=== PATIENT | male | born 1935 | race Asian ===

== ENCOUNTER 2022-02-28 18:57 | Inpatient (IN) | payer OTHER, MEDICAID ==
[~2022-02-28] VITALS: Ht 172.7 cm; Wt 72.6 kg
[2022-02-28 19:13] VITALS: BP 129/76
--- NOTE | 2022-02-28 19:29 | NUR ---
TO LOBBY FOLLOWING TRIAGE
[2022-02-28 21:48] LABS: BASOPHILS % (AUTO) 0.5 % (0.0-2.0); EOSINOPHILS % (AUTO) 0.4 % (0.0-4.0); HEMATOCRIT 37.3 % (36-52); HEMOGLOBIN 12.4 g/dL (12.0-18.0); LYMPHOCYTES # (AUTO) 1.2 K/uL (2.0-11.5); LYMPHOCYTES % (AUTO) 12.5 % (20.5-51.1); MEAN CORPUSCULAR HEMOGLOBIN 32 pg (27-31); MEAN CORPUSCULAR HGB CONC 33 g/dL (33-37); MEAN CORPUSCULAR VOLUME 96.8 fL (80-94); MONOCYTES # (AUTO) 0.7 K/uL (0.8-1.0); MONOCYTES % (AUTO) 7.5 % (1.7-9.3); NEUTROPHILS # (AUTO) 7.7 K/uL (1.8-7.7); NEUTROPHILS % (AUTO) 79.1 % (42.2-75.2); PLATELET COUNT (AUTO) 104 K/uL (140-450); RED BLOOD CELL COUNT(AUTO) 3.85 MIL/uL (4.20-6.10); RED CELL DISTRIBUTION WIDTH 13.7 % (11.6-13.7); WHITE BLOOD COUNT (AUTO) 9.7 K/uL (4.8-10.8)
--- NOTE | 2022-02-28 22:00 | NUR ---
PT TO BED 8 VIA WHEELCHAIR, DAUGHTER AT BEDSIDE
[2022-02-28 22:14] LABS: ALBUMIN 3.8 g/dL (3.4-5.0); ANION GAP 11.1 (8-16); ASPARTATE AMINOTRANSFERASE 22 U/L (15-37); CARBON DIOXIDE 31.2 mmol/L (21-32); CHLORIDE 105 mmol/L (98-107); CREATININE 1.2 mg/dL (0.6-1.3); GLUCOSE 123 mg/dL (74-106); LIPASE 35 U/L (73-393); POTASSIUM 3.3 mmol/L (3.5-5.1); SODIUM SERUM 144 mmol/L (136-145); TOTAL BILIRUBIN 0.9 mg/dL (0.0-1.0); UREA NITROGEN, BLOOD 18 mg/dL (7-18)
--- NOTE | 2022-02-28 22:20 | NUR ---
86 Y/O M PRESENTS WITH ABDOMEN AND BACK PAIN SINCE THURSDAY NIGHT. PT'S DAUGHTER STATED HIS PAIN BECAME WORSE SINCE AND IS INTERMITTENT, X5DAYS NO BM. PT'S DAUGHTER MENTIONED SHE GAVE HIM AN ENEMA AND IT WAS SUCCESSFUL WITH SOME DIARRHEA, AND THE PT FEELS PRESSURE ON HIS EYES AND VISION IS BLURRY. PT IS A&OX2, RESPONDS TO DAUGHTER. PT APPEARS LETHARGIC WITH A DRY COUGH. PT DOES NOT VERBALLY SAY PAIN LEVEL, BUT HAS FACE GRIMACE. PT DAUGHTER STATED THE PT HAD A TEMP EARLIER AND DENIES PT ON BLOOD THINNERS. PT HAS A 20G R AC. PT'S DAUGHTER ALOS MENTIONED THE PT HAS SEIZURES. PT WAS STARTED ON O2 OF 1L SAT AT 90 AND INCREASED TO 2.5L SAT AT 97. PMH- PARKINSONS, SEIZURES NKA
--- NOTE | 2022-02-28 23:26 | NUR ---
PT IN CT
--- NOTE | 2022-02-28 23:34 | NUR ---
PT BACK FROM CT . 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 DAUGHTER AT BEDSIDE
[2022-03-01 01:13] LABS: APPEARANCE,URINE CLEAR (CLEAR); BILIRUBIN,URINE NEGATIVE (NEGATIVE); BLOOD, URINE 2+ (NEGATIVE); COLOR,URINE YELLOW (YELLOW); LEUKOCYTE ESTERASE ,URINE NEGATIVE (NEGATIVE); NITRITE, URINE NEGATIVE (NEGATIVE); UGLUCOSE NEGATIVE (NEGATIVE)
--- NOTE | 2022-03-01 01:13 | NUR ---
PENDING ADMISSION ORDERS. COVID SWAB COLLECTED AND SENT TO LAB.
--- NOTE | 2022-03-01 01:14 | NUR ---
PT STRAIGHT CATH URINE OBATAINED AND SENT TO LAB
[2022-03-01 01:43] LABS: RBC,URINE 20-50 /HPF (0-5)
[2022-03-01] MEDS ORDERED: NACL 0.9% 1,000 ML IV ONE (02:35)
[2022-03-01] MEDS ORDERED: cefTRIAXone 1,000 MG VIAL ONE (02:41)
--- NOTE | 2022-03-01 04:04 | NUR ---
PT SLEEPING, HOB ELEVATED WITH PENDING ADMISSION. RESPIRATIONS EVEN AND UNLABORED. DAUGHTER CALLED TO CHECK IN, STATED SHE WILL BE BACK AROUND 0700.
[2022-03-01] MEDS ORDERED: GABA100C PO (05:21)
[2022-03-01] MEDS ORDERED: PRO5 PO (05:21)
[2022-03-01] MEDS ORDERED: LEVO0.124 PO (05:21)
[2022-03-01] MEDS ORDERED: [UNRECOGNIZED DRUG - CODE] PO (05:21)
[2022-03-01] MEDS ORDERED: FLO.1 PO (05:21)
[2022-03-01] MEDS ORDERED: CARB1ODT4 PO (05:21)
[2022-03-01] MEDS ORDERED: [UNRECOGNIZED DRUG - CODE] PO (05:22)
--- NOTE | 2022-03-01 07:03 | NUR ---
PT SLEEPING, DAUGHTER AT BEDSIDE. PENDING ADMISSION
--- NOTE | 2022-03-01 07:14 | NUR ---
Received report from LILLIAN Restrepo for transfer of care.
--- NOTE | 2022-03-01 07:44 | NUR ---
Patient was made clean and dry. Fresh diaper applied. Patient was turned and repositioned.
[2022-03-01] MEDS ORDERED: MAG SULF 2000 MG/WATER PREMIX 50 ML IV PRN (08:00)
--- NOTE | 2022-03-01 08:50 | NUR ---
Patient was offered breakfast tray. Patient ate some breakfast.
--- NOTE | 2022-03-01 09:16 | NUR ---
Dr. Marina, admitting doctor, evaluating patient at bedside.
--- NOTE | 2022-03-01 09:48 | NUR ---
Patient was turned and repositioned, diaper was changed.
--- NOTE | 2022-03-01 11:17 | NUR ---
Patient is laying in bed, respirations even and unlabored. No signs of distress noted.
[2022-03-01] MEDS ORDERED: ONDANSETRON 4 MG/2 ML VIAL IVP PRN ×2 (11:25→11:35)
[2022-03-01] MEDS ORDERED: MORPHINE SULFATE 2 MG/ML SYR IVP PRN ×2 (11:25→11:35)
[2022-03-01] MEDS ORDERED: LORazepam 2 MG/ML VIAL IVP PRN ×2 (11:25→11:35)
[2022-03-01] MEDS ORDERED: DOCUSATE SODIUM 100 MG GELCAP PO PRN (11:35)
[2022-03-01] MEDS ORDERED: ACETAMINOPHEN 325 MG TAB PO PRN (11:35)
[2022-03-01] MEDS ORDERED: ZOLPIDEM 10 MG TAB PO PRN (11:35)
[2022-03-01] MEDS: NACL 0.9% 1,000 ML IV SCH ×2 (12:37→21:25)
--- NOTE | 2022-03-01 12:38 | NUR ---
When patient was provided with incontinent care, patient was noted with blood to his urethra. Patient was turned and repositioned.
--- NOTE | 2022-03-01 14:23 | NUR ---
Patient pulled out IV. Called Dr. Marina and informed him of patient pulling out G-tube and loose stool. Received new orders for Ativan 2mg IM one time and C. Diff protocol. Orders carried out. Addendum: 03/01/22 at 1424 by MNUROBN Correction pulled out IV not G-tube.
[2022-03-01] MEDS ORDERED: LORazepam 2 MG/ML VIAL IM PRN (14:25)
--- NOTE | 2022-03-01 15:37 | NUR ---
Patient was made clean and dry. Incontinent care provided. Patient was turned and repositioned.
--- NOTE | 2022-03-01 18:01 | NUR ---
Patient was provided with incontinent care. Patient was turned and repositioned.
--- NOTE | 2022-03-01 19:21 | NUR ---
Report given to ERIC Hyman and ERIC Moon for transfer of care.
--- NOTE | 2022-03-01 21:40 | NUR ---
Stool specimen sent to lab
--- NOTE | 2022-03-01 21:50 | NUR ---
Pt care provided and changed, linens changed.
--- NOTE | 2022-03-01 21:58 | NUR ---
Spoke with Dr. Marina regarding continuing home medications, order received to continue home meds.
--- NOTE | 2022-03-01 22:15 | NUR ---
Report given for transfer of care to Elif REYES
--- NOTE | 2022-03-01 22:35 | NUR ---
ADMITTED PATIENT FROM ER [facility]IA [facility] NON VERBAL AT THIS TIME WITH EYES CLOSED. ON ROOM AIR, UNDER DR FROST. CC: ALOC DX: AMS SECONDARY TO UTI. TRANSFERRED PATIENT TO BED SAFELY. DAUGHTER AT BEDSIDE. ALL SAFETY PRECAUTIONS ARE IN PLACE. HANGED IVF ORDERED. BODY CHECKED DONE SKIN INTACT. MRSA SCREENING DONE.
[2022-03-02] VITALS: BP 119/67
[2022-03-02] MEDS: NACL 0.9% 1,000 ML IV SCH ×3 (01:41→17:54)
[2022-03-02] MEDS ORDERED: cefTRIAXone 1,000 MG VIAL ONE (03:23)
--- NOTE | 2022-03-02 03:42 | NUR ---
CHECKED ON PATIENT , PT IS BREATHING NORMAL WITH SYMMETRICAL RISE AND FALL OF THE CHEST. NO SOB NOTED.
[2022-03-02 04:00] VITALS: BP 124/78
[2022-03-02] MEDS: LEVOTHYROXINE 0.025 MG TAB PO SCH (06:30)
[2022-03-02] MEDS: LEVOTHYROXINE 0.1 MG TAB PO SCH (06:30)
--- NOTE | 2022-03-02 07:26 | NUR ---
BEDSIDE REPORT GIVEN TO AM NURSE SHAAN FOR CONTINUITY OF CARE. POC DISCUSSED.
[2022-03-02 07:27] LABS: ANION GAP 10.5 (8-16); CARBON DIOXIDE 26.8 mmol/L (21-32); CHLORIDE 109 mmol/L (98-107); CREATININE 0.8 mg/dL (0.6-1.3); GLUCOSE 89 mg/dL (74-106); POTASSIUM 3.3 mmol/L (3.5-5.1); SODIUM SERUM 143 mmol/L (136-145); UREA NITROGEN, BLOOD 12 mg/dL (7-18)
[2022-03-02 07:29] LABS: BASOPHILS % (AUTO) 0.4 % (0.0-2.0); EOSINOPHILS # (AUTO) 0.3 K/uL (0-0.4); EOSINOPHILS % (AUTO) 2.6 % (0.0-4.0); HEMATOCRIT 35.2 % (36-52); HEMOGLOBIN 11.9 g/dL (12.0-18.0); LYMPHOCYTES # (AUTO) 1.4 K/uL (2.0-11.5); LYMPHOCYTES % (AUTO) 13.9 % (20.5-51.1); MEAN CORPUSCULAR HEMOGLOBIN 33 pg (27-31); MEAN CORPUSCULAR HGB CONC 34 g/dL (33-37); MEAN CORPUSCULAR VOLUME 96.7 fL (80-94); MONOCYTES # (AUTO) 0.8 K/uL (0.8-1.0); MONOCYTES % (AUTO) 7.9 % (1.7-9.3); NEUTROPHILS # (AUTO) 7.7 K/uL (1.8-7.7); NEUTROPHILS % (AUTO) 75.2 % (42.2-75.2); PLATELET COUNT (AUTO) 131 K/uL (140-450); RED BLOOD CELL COUNT(AUTO) 3.63 MIL/uL (4.20-6.10); RED CELL DISTRIBUTION WIDTH 13.5 % (11.6-13.7); WHITE BLOOD COUNT (AUTO) 10.2 K/uL (4.8-10.8)
[2022-03-02 08:00] VITALS: BP 183/98
[2022-03-02] MEDS: MIDODRINE 5 MG TAB PO SCH (09:00)
[2022-03-02] MEDS: MULTIVITAMIN/MINERALS 1 TAB PO SCH (09:00)
[2022-03-02] MEDS ORDERED: FLUDROCORTISONE 0.1 MG TAB PO SCH (09:00)
[2022-03-02] MEDS ORDERED: COMMUNICATION ORDER MC SCH (09:00)
[2022-03-02] MEDS: CARBIDOPA/LEVODOPA 25/100 MG 1 TAB PO SCH (09:00)
[2022-03-02] MEDS: FLUDROCORTISONE 0.1 MG TAB PO SCH ×2 (09:00→21:00)
[2022-03-02] MEDS: ENTACAPONE 200 MG TAB PO SCH (09:00)
--- NOTE | 2022-03-02 09:23 | NUR ---
PATIENT HAS BEEN SCREENED AND CATEGORIZED MODERATE NUTRITION RISK. PATIENT WILL BE SEEN WITHIN 3-5 DAYS OF ADMISSION. REVIEWED BY VIVIANE DIETRICH RD
[2022-03-02 16:00] VITALS: BP 178/99
[2022-03-02] MEDS ORDERED: LOVENOX 1MG/KG Q24H SUBQ SCH (17:15)
[2022-03-02] MEDS ORDERED: ENOXAPARIN 80 MG/0.8 ML SYR SUBQ SCH (18:30)
--- NOTE | 2022-03-02 19:39 | NUR ---
ENDORSE PATIENT IN STABLE CONDITION TO PM SHIFT NURSE ULYSSES PIV 24 AT R. THUMB INFUSING NS @100ML/HR. PATIENT HAD 4 DIARRHEAS DURING DAY SHIFT
--- NOTE | 2022-03-02 19:57 | NUR ---
PATIENT SLEEPING, BREATHING NORMAL WITH SYMMETRICAL RISE AND FALL OF THE CHEST. IVF NS INFUSING 100 ML/HR. BED WHEELS LOCKED IN LOWEST POSITION FOR SAFETY. CALL LIGHT IN REACH.
--- NOTE | 2022-03-02 20:25 | NUR ---
PATIENT PULLED OUT IV LINE, WILL START A NEW IV.
[2022-03-02] MEDS: GABAPENTIN 100 MG CAP PO SCH (21:00)
--- NOTE | 2022-03-02 21:50 | NUR ---
STARTED A NEW IV ON THE LEFT WRIST WITH GOOD RETURN OF BLOOD. TOLERATED WELL.
--- NOTE | 2022-03-02 22:18 | NUR ---
PATIENT KEEP PULLING OUT HIS IV, KICKING AT THE STAFF. NOTIFIED DR. JUAREZ WITH ORDERS NOTED AND CARRIED OUT.
--- NOTE | 2022-03-02 22:19 | NUR ---
DAUGHTER DAGOBERTO ARANA MADE AWARE WITH THE USE OF PATIENT RESTRAINTS.
[2022-03-03] MEDS: NACL 0.9% 1,000 ML IV SCH ×3 (00:30→23:25)
[2022-03-03 04:00] VITALS: BP 163/92
[2022-03-03 05:52] LABS: BASOPHILS % (AUTO) 0.2 % (0.0-2.0); EOSINOPHILS # (AUTO) 0.2 K/uL (0-0.4); EOSINOPHILS % (AUTO) 2.6 % (0.0-4.0); HEMATOCRIT 38.4 % (36-52); HEMOGLOBIN 13.1 g/dL (12.0-18.0); LYMPHOCYTES # (AUTO) 1.2 K/uL (2.0-11.5); MEAN CORPUSCULAR HEMOGLOBIN 33 pg (27-31); MEAN CORPUSCULAR HGB CONC 34 g/dL (33-37); MEAN CORPUSCULAR VOLUME 95.3 fL (80-94); MONOCYTES # (AUTO) 0.7 K/uL (0.8-1.0); MONOCYTES % (AUTO) 8.4 % (1.7-9.3); NEUTROPHILS # (AUTO) 5.8 K/uL (1.8-7.7); NEUTROPHILS % (AUTO) 73.8 % (42.2-75.2); PLATELET COUNT (AUTO) 123 K/uL (140-450); RED BLOOD CELL COUNT(AUTO) 4.03 MIL/uL (4.20-6.10); RED CELL DISTRIBUTION WIDTH 13.2 % (11.6-13.7); WHITE BLOOD COUNT (AUTO) 7.9 K/uL (4.8-10.8)
[2022-03-03] MEDS: LEVOTHYROXINE 0.1 MG TAB PO SCH (06:30)
[2022-03-03] MEDS: LEVOTHYROXINE 0.025 MG TAB PO SCH (06:30)
[2022-03-03 06:31] LABS: ANION GAP 9.6 (8-16); CARBON DIOXIDE 27.8 mmol/L (21-32); CHLORIDE 107 mmol/L (98-107); CREATININE 0.8 mg/dL (0.6-1.3); GLUCOSE 91 mg/dL (74-106); POTASSIUM 3.4 mmol/L (3.5-5.1); SODIUM SERUM 141 mmol/L (136-145); UREA NITROGEN, BLOOD 13 mg/dL (7-18)
[2022-03-03 08:00] VITALS: BP 180/78
[2022-03-03] MEDS: CARBIDOPA/LEVODOPA 25/100 MG 1 TAB PO SCH (09:00)
[2022-03-03] MEDS: FLUDROCORTISONE 0.1 MG TAB PO SCH ×2 (09:00→21:29)
[2022-03-03] MEDS: MIDODRINE 5 MG TAB PO SCH (09:00)
[2022-03-03] MEDS: ENTACAPONE 200 MG TAB PO SCH (09:00)
[2022-03-03] MEDS: MULTIVITAMIN/MINERALS 1 TAB PO SCH (09:00)
--- NOTE | 2022-03-03 14:40 | NUR ---
PT WAS SEEN FOR DYSPHAGIA. PT WAS ABLE TO SAFELY SWALLOW PUREE DIETW ITH HONEY THICK LIQUID. MILD COUGH FOR NTL AND THIN LIQUID. RECOMMENDATION PUREE DIET WITH HONEY THICK LIQUID SMALL BITES AND SIPS ONLY FEED WHEN PT IS FULLY AWAKE
[2022-03-03 16:00] VITALS: BP 157/83
--- NOTE | 2022-03-03 16:29 | NUR ---
DC PLANNING PER NOTES PT IS NONVERBAL THEREFORE SW OUTREACHED TO DAGOBERTO, DAUGHTER, TO GATHER COLLATERAL INFORMATION. DAGOBERTO REPORTS PT RESIDES IN A SINGLE STORY HOME WITH HIS HER AND PTS GRANDDAUGHTER AT THE ADDRESS LISTED ON FILE. DAGOBERTO REPORTS PATIENT RECENTLY MOVED IN WITH HER IN DEC 31. PT IDENTIFIED HERSELF, , PRINCE DIETRICH, SON, AND LIANA DIETRICH, DAUGHTER, PT EMERGENCY CONTACTS. DAGOBERTO REPORTS LIANA IS PTS DPOA AND IS AWARE PT IS ADMITTED TO [facility]. LIANA IS REPORTED TO BE CURRENTLY OUT OF THE COUNTRY. DAGOBERTO REPORTS PT IS CURRENTLY IN BETWEEN PHYSICIANS HE CURRENTLY RELOCATED, LAST VISIT DEC 31. PT REPORTED TO BE MEDICATION COMPLIANT AND RECEIVES MEDICATION FROM [facility] IN [place], WHEN NEEDED. PT AT BASELINE IS REPORTED TO UTILIZE WC, FWW, CANE AND REQUIRES MINIMAL ASSISTANCE WITH ADL'S. DAGOBERTO REPORTS PT HAS HX OF PARKINSON DX'S 13 YRS AGO, WELL , DEMENTIA. DAGOBERTO DENIES HX OF DIABETES, DIALYSIS, SNF PLACEMENT, HOSPICE AND HH SERVICES. PT IS REPORTED TO HAVE BEEN IN RESPITE CARE FOR 1 MONTH IN SEP-OCT 31. DAGOBERTO REPORTS TENTATIVE PLAN IS FOR PT TO RETURN HOME HOWEVER, INQUIRED ABOUT SNF PLACEMENT . DAGOBERTO REPORTS IF PT LEVEL OF CARE HAS INCREASED, FAMILY HAS INABILITY TO CARE FOR HIM. DAGOBERTO REPORTS BEING OPEN TO SNF PLACEMENT. OTIS FIELDED CALL FROM [facility] ADMIN WHO REPORTS PTS FAMILY HAD OUTREACHED TO [facility] FOR PLACEMENT. Addendum: 03/03/22 at 1631 by Tono TORRES Amended: Links added.
[2022-03-03] MEDS: POTASSIUM CHLORIDE 10 MEQ TABER PO PRN (18:24)
--- NOTE | 2022-03-03 19:21 | NUR ---
ENDORSE PATIENT IN STABLE CONDITION TO PM SHIFT NURSE ULYSSES Reynolds FOREARM INFUSING NS @100ML/HR. SOFT RESTRICT PRESENT. PATIENT START PUREE DIET AT DINNER (ATE 90%). PATIENT HAD 3 DIARRHEAS & 1 FORMED BM DURING DAY SHIFT
--- NOTE | 2022-03-03 19:30 | NUR ---
RECEIVED REPORT FROM DAY SHIFT NURSE JJ FOR CONTINUITY OF CARE. PATIENT IS A&O X0, LAO SPEAKING. IV IS LFA 22G, RUNNING NS 100. PATIENT IS LYING SEMI-FOWLERS IN BED. BED IS IN LOWEST POSITION, WHEELS LOCKED CALL LIGHT IN PLACE. WILL CONTINUE TO OBSERVE PATIENT.
[2022-03-03 20:00] VITALS: BP 108/63
[2022-03-03] MEDS ORDERED: ENOXAPARIN 80 MG/0.8 ML SYR SUBQ SCH (21:00)
[2022-03-03] MEDS: GABAPENTIN 100 MG CAP PO SCH (21:29)
[2022-03-04 04:00] VITALS: BP 138/56
--- NOTE | 2022-03-04 05:30 | NUR ---
PATIENT HAD BM. PATIENT WAS CLEANED WITH ASSISTANCE FROM JULIUS ACUNA, NURSE COLIN, AND NURSE MELISSA. PATIENT WAS GIVEN NEW PILLOW FOR LEG SUPPORT, COVERS, SHEFALI PADS, AND GOWN. PATIENT TOLERATED WELL. WILL CONTINUE TO OBSERVE PATIENT.
[2022-03-04 06:07] LABS: ANION GAP 10.3 (8-16); CARBON DIOXIDE 26.9 mmol/L (21-32); CHLORIDE 110 mmol/L (98-107); CREATININE 1.1 mg/dL (0.6-1.3); GLUCOSE 91 mg/dL (74-106); POTASSIUM 3.2 mmol/L (3.5-5.1); SODIUM SERUM 144 mmol/L (136-145); UREA NITROGEN, BLOOD 16 mg/dL (7-18)
[2022-03-04 06:10] LABS: BASOPHILS % (AUTO) 0.3 % (0.0-2.0); EOSINOPHILS # (AUTO) 0.2 K/uL (0-0.4); HEMATOCRIT 35.4 % (36-52); HEMOGLOBIN 12.1 g/dL (12.0-18.0); LYMPHOCYTES # (AUTO) 1.2 K/uL (2.0-11.5); LYMPHOCYTES % (AUTO) 20.2 % (20.5-51.1); MEAN CORPUSCULAR HEMOGLOBIN 33 pg (27-31); MEAN CORPUSCULAR HGB CONC 34 g/dL (33-37); MEAN CORPUSCULAR VOLUME 95.2 fL (80-94); MONOCYTES # (AUTO) 0.7 K/uL (0.8-1.0); MONOCYTES % (AUTO) 12.6 % (1.7-9.3); NEUTROPHILS # (AUTO) 3.8 K/uL (1.8-7.7); NEUTROPHILS % (AUTO) 63.9 % (42.2-75.2); PLATELET COUNT (AUTO) 132 K/uL (140-450); RED BLOOD CELL COUNT(AUTO) 3.72 MIL/uL (4.20-6.10); RED CELL DISTRIBUTION WIDTH 13.3 % (11.6-13.7)
[2022-03-04] MEDS: LEVOTHYROXINE 0.1 MG TAB PO SCH (06:17)
[2022-03-04] MEDS: NACL 0.9% 1,000 ML IV SCH (06:18)
[2022-03-04] MEDS: LEVOTHYROXINE 0.025 MG TAB PO SCH (06:18)
--- NOTE | 2022-03-04 07:29 | NUR ---
ENDORSED TO DAY SHIFT NURSE JOHN FOR CONTINUITY OF CARE. PATIENT IS STABLE.
[2022-03-04] MEDS: ENTACAPONE 200 MG TAB PO SCH (09:00)
[2022-03-04] MEDS: POTASSIUM CHLORIDE 10 MEQ TABER PO PRN (09:58)
[2022-03-04] MEDS: CARBIDOPA/LEVODOPA 25/100 MG 1 TAB PO SCH (09:58)
[2022-03-04] MEDS: MIDODRINE 5 MG TAB PO SCH (09:59)
[2022-03-04] MEDS: MULTIVITAMIN/MINERALS 1 TAB PO SCH (09:59)
[2022-03-04] MEDS: FLUDROCORTISONE 0.1 MG TAB PO SCH (09:59)
[2022-03-04 13:36] VITALS: BP 146/80
--- NOTE | 2022-03-04 14:05 | NUR ---
DC PLANNING: CM MET PT'S DAUGHTER DAGOBERTO AT THE BED SIDE DISCUSSED THE DC PLACEMENT PER DAUGHTER REQUESTED TO GO TO SNF FOR REHAB TO [facility] WITH THE [place] [facility]. PATIENT GOT ACCEPTED AT [facility] CAN GO TO ROOM 34B .ARRANGED TRANSPORT WITH [facility] UPTIME 3 PM. NOTIFIED JOHN REYES. OTIS TO FOLLOW
--- NOTE | 2022-03-04 15:00 | NUR ---
DISCHARGE INSTRUCTIONS AND EDUCATION GIVEN AND THOROUGHLY EXPLAINED TO PATIENTS DAUGHTER, LIANA DIETRICH. ALL QUESTIONS AND CONCERNS ADDRESSED AT THIS TIME. INFORMED PATIENTS DAUGHTER NO NEW PRESCRIPTIONS WERE ORDERS. AND HOME MEDICATIONS WILL BE CONTINUED. ADVISED PATIENT'S DAUGHTER TO HAVE PATIENT FOLLOW UP WITH HIS PCP WITHIN A WEEK. ALL BELONGINGS WITH PATIENT. PATIENT APPEARS FREE OF PAIN, NO SOB, OR DISCOMFORT AT THIS TIME. V/S STABLE. IV REMOVED AND ID BAND. GAVE REPORT TO FARRAH AT [facility] AT [phone]. INFORMED PATIENT IS R/O C. DIFF PENDING RESULTS. ERIC YAN VERBALIZED UNDERSTANDING.
== END 2022-03-04 15:20 | DRG 871 ==
LOC: MED 18:57 → MMU 03-01 02:37 → MIC 03-01 06:01 → MTU 03-01 22:16
PROVIDERS: ADMIT Family Medicine; ATTEND Family Medicine
DX: A41.9 Sepsis, unspecified organism (principal); G93.41 Metabolic encephalopathy; N39.0 Urinary tract infection, site not specified; G20 Parkinson's disease; F02.80 Dementia in other diseases classified elsewhere, unspecified severity, without behavioral disturbance, psychotic disturbance, mood disturbance, and anxiety; E87.6 Hypokalemia; R65.20 Severe sepsis without septic shock; Z20.822 Contact with and (suspected) exposure to COVID-19
CPT/HCPCS: 36415; 70450; 71045; 80048; 80053; 81001; 83036; 83690; 83735; 84484; 85025; 87070; 87081; 87086; 92610; 96365; 97163-GP; 97530; 99285; J0696; J1644; J1650; J2060; J2270; J7060; Q9967

== ENCOUNTER 2022-04-01 02:45 | Inpatient (IN) | payer OTHER, MEDICAID ==
[~2022-04-01] VITALS: Ht 177.8 cm; Wt 63.5 kg
[~2022-04-01 02:45] MED LIST: CARB1ODT4 PO; FLO.1 PO; GABA100C PO; LEVO0.124 PO; PRO5 PO; [UNRECOGNIZED DRUG - CODE] PO; [UNRECOGNIZED DRUG - CODE] PO
--- NOTE | 2022-04-01 03:00 | NUR ---
PT IS HERE BECAUSE HE DESATING IN THE 80 WITH NASAL CANULA. PT BROUGHT BY AMBULANCE WITH NON REBREATHER 8 LITER. PER FISCAL CLERK THEY TRIED TO CALLED THE FAMILY BUT NO ANSWERS. PT IS UNABLE TO AMBULATE. SKIN IS INTACT.
[2022-04-01 03:03] VITALS: BP 162/91
[2022-04-01 03:05] VITALS: BP 170/82
[2022-04-01 03:07] LABS: BASOPHILS # (AUTO) 0.1 K/uL (0.00-0.22); BASOPHILS % (AUTO) 0.5 % (0.0-2.0); HEMATOCRIT 33.1 % (36-52); LYMPHOCYTES # (AUTO) 1.2 K/uL (2.0-11.5); LYMPHOCYTES % (AUTO) 11.2 % (20.5-51.1); MEAN CORPUSCULAR HEMOGLOBIN 32 pg (27-31); MEAN CORPUSCULAR HGB CONC 33 g/dL (33-37); MEAN CORPUSCULAR VOLUME 95.1 fL (80-94); MONOCYTES # (AUTO) 0.5 K/uL (0.8-1.0); MONOCYTES % (AUTO) 5.1 % (1.7-9.3); NEUTROPHILS # (AUTO) 8.9 K/uL (1.8-7.7); NEUTROPHILS % (AUTO) 83.2 % (42.2-75.2); PLATELET COUNT (AUTO) 151 K/uL (140-450); RED BLOOD CELL COUNT(AUTO) 3.48 MIL/uL (4.20-6.10); RED CELL DISTRIBUTION WIDTH 14.1 % (11.6-13.7); WHITE BLOOD COUNT (AUTO) 10.7 K/uL (4.8-10.8)
--- NOTE | 2022-04-01 03:13 | NUR ---
BIBA FROM [facility], FOR FLUCTUATING O2 SATS. PATIENT ALSO WITH ELEVATED TEMP AND TACHYPNEA. PATIENT TRANSFERRED FROM [facility] TO BED 1 HAS THE FOLLOWING MEDICAL HISTORY PER DOCUMENTATION FROM [facility]: DEMENTIA, PARKINSON'S DISEASE, HTN, NEUROPATHY, DYSPHAGIA, C.DIFF, AND UTI
[2022-04-01 03:24] LABS: ALBUMIN 3.2 g/dL (3.4-5.0); ANION GAP 11.8 (8-16); ASPARTATE AMINOTRANSFERASE 20 U/L (15-37); CARBON DIOXIDE 29.9 mmol/L (21-32); CHLORIDE 108 mmol/L (98-107); CREATININE 1.3 mg/dL (0.6-1.3); GLUCOSE 128 mg/dL (74-106); POTASSIUM 3.7 mmol/L (3.5-5.1); SODIUM SERUM 146 mmol/L (136-145); UREA NITROGEN, BLOOD 28 mg/dL (7-18)
[2022-04-01] MEDS ORDERED: ACETAMINOPHEN 650 MG SUPP RC ONE ×2 (03:25)
[2022-04-01 03:29] LABS: LIPASE 57 U/L (73-393)
--- NOTE | 2022-04-01 03:39 | NUR ---
0315 PLACED PATIENT ON BIPAP DUE TO SOB. IPAP 16 EPAP6 RR 20 FIO2 100% SIZE MEDIUM MASK. PT BS ARE COARSE BILAT. ABG PENDING
--- NOTE | 2022-04-01 03:40 | NUR ---
0340 POST ABG LOWERED FIO2 TO 30%
[2022-04-01] MEDS ORDERED: BISA-213 RC (04:35)
[2022-04-01] MEDS ORDERED: MULT-1328 PO (04:35)
[2022-04-01] MEDS ORDERED: MIDO10TA PO (04:35)
[2022-04-01] MEDS ORDERED: PRAM0.5T4 PO (04:35)
[2022-04-01] MEDS ORDERED: MULT-2246 PO (04:35)
[2022-04-01] MEDS ORDERED: PIPERACILLIN/TAZOBACTAM 3.375 GM VIAL IV ONE ×2 (04:44→13:21)
[2022-04-01] MEDS ORDERED: AZITHROMYCIN 500 MG in DEXTROSE 5% 250 ML IV ONE (04:45)
[2022-04-01] MEDS ORDERED: PIPERACILLIN/TAZOBACTAM 3.375 GM in DEXTROSE 5% 50 ML IV ONE (04:45)
[2022-04-01] MEDS ORDERED: NACL 0.9% 1,000 ML IV ONE (05:00)
[2022-04-01] MEDS ORDERED: AZITHROMYCIN 500 MG INJ VIAL IV ONE (05:06)
--- NOTE | 2022-04-01 05:22 | NUR ---
0505 PATIENT BROKE BIPAP CIRCUIT. HAD TO REPLACE CIRCUIT. PLACED PT ON RESTRAINTS.LOWERED IPAP TO 14
[2022-04-01] MEDS ORDERED: NACL 0.9% 1,000 ML IV SCH (07:00)
[2022-04-01] MEDS ORDERED: ZOLPIDEM 5 MG TAB PO PRN (07:00)
[2022-04-01] MEDS ORDERED: ONDANSETRON 4 MG/2 ML VIAL IM/IVP PRN (07:00)
[2022-04-01] MEDS ORDERED: ACETAMINOPHEN 325 MG TAB PO PRN (07:00)
[2022-04-01] MEDS ORDERED: HYDROcodone/APAP 7.5/325 MG 1 TAB PO PRN (07:00)
[2022-04-01] MEDS ORDERED: DOCUSATE SODIUM 100 MG GELCAP PO PRN (07:00)
[2022-04-01] MEDS ORDERED: guaiFENesin DM 200/20 MG-10 ML 10 ML UDC PO PRN (07:00)
[2022-04-01] MEDS ORDERED: methylPREDNISolone SS 40 MG/ML VIAL IVP SCH (07:20)
[2022-04-01] MEDS: CARBIDOPA/LEVODOPA 25/100 MG 1 TAB PO SCH ×3 (08:00→17:00)
[2022-04-01] MEDS ORDERED: FUROSEMIDE 20 MG/2 ML VIAL IVP SCH (08:10)
[2022-04-01] MEDS: MIDODRINE 5 MG TAB PO SCH (09:00)
[2022-04-01] MEDS: PRAMIPEXOLE 0.5 MG TAB PO SCH (09:00)
[2022-04-01] MEDS: MULTIVITAMIN/MINERALS 1 TAB PO SCH (09:00)
[2022-04-01] MEDS: GABAPENTIN 100 MG CAP PO SCH (09:00)
[2022-04-01] MEDS: ENTACAPONE 200 MG TAB PO SCH (09:00)
[2022-04-01] MEDS ORDERED: NON-FORMULARY ITEM (Multivitamin with Minerals (Multivitamins with Minerals) 1 TAB) PO SCH (09:00)
[2022-04-01] MEDS: PANTOPRAZOLE 40 MG TABEC PO SCH (09:00)
[2022-04-01 09:05] LABS: PROTHROMBIN TIME 10.3 secs (10.8-13.4)
[2022-04-01 09:11] LABS: FREE T4 (FREE THYROXINE) 1.14 ng/dL (0.76-1.46); MAGNESIUM 1.6 mg/dL (1.8-2.4); PHOSPHORUS 2.8 mg/dL (2.5-4.9)
[2022-04-01] MEDS ORDERED: MAG SULF 2000 MG/WATER PREMIX 50 ML IV ONE (11:00)
[2022-04-01] MEDS: methylPREDNISolone SS 125 MG/2 ML VIAL IVP SCH ×2 (12:45→18:53)
[2022-04-01] MEDS: PIPERACILLIN/TAZOBACTAM 3.375 GM in DEXTROSE 5% 50 ML IV SCH ×2 (13:40→20:11)
[2022-04-01 14:36] LABS: APPEARANCE,URINE CLEAR (CLEAR); BILIRUBIN,URINE NEGATIVE (NEGATIVE); BLOOD, URINE TRACE-I (NEGATIVE); COLOR,URINE YELLOW (YELLOW); LEUKOCYTE ESTERASE ,URINE NEGATIVE (NEGATIVE); NITRITE, URINE NEGATIVE (NEGATIVE); PH,URINE 5.5 (5.0-9.0); UGLUCOSE NEGATIVE (NEGATIVE)
[2022-04-01 15:02] LABS: RBC,URINE 0-5 /HPF (0-5); WBC,URINE 0-5 /HPF (0-5)
--- NOTE | 2022-04-01 15:32 | NUR ---
Patient failed sawllow eval per ST. continue on NPO
[2022-04-01 16:35] VITALS: BP 126/71
--- NOTE | 2022-04-01 16:35 | NUR ---
RECIEVED REPORT FROM ER NURSE FOR CONTINUITY OF CARE. PT WAS STABLE UPON TRANSPORT WITH NO SIGNS OF DISTRESSED OR LABORED BREATHING. PT IS A&OX1, ON 3L NC STATING AT 94%, NON AMBULATORY ON BED REST AND IS NPO AT THIS TIME. PT IS INCONTINENT OF BOWEL AND BLADDER AT THIS TIME. PT HAS A 18G IN HIS RAC THAT IS INFUSING NS@ 60ML/HR. ALL SAFETY MEASURES IN PLACE AND WILL CONTINUE TO MONITOR.
--- NOTE | 2022-04-01 19:20 | NUR ---
ENDORSED PT TO SETTER OFF NURSE FOR CONTINUITY OF CARE. PT STABLE AT THIS TIME.
--- NOTE | 2022-04-01 19:25 | NUR ---
RECEIVED PT FROM AM NURSE FOR CONTINUITY OF CARE.PT IS STABLE
[2022-04-01 20:00] VITALS: BP 126/73
[2022-04-02] VITALS: BP 130/78
--- NOTE | 2022-04-02 02:00 | NUR ---
PATIENT ASLEEP, NO S/SX OF DISTRESS NOTED
[2022-04-02 04:00] VITALS: BP 146/90
[2022-04-02] MEDS: PIPERACILLIN/TAZOBACTAM 3.375 GM in DEXTROSE 5% 50 ML IV SCH ×3 (05:00→20:18)
[2022-04-02] MEDS: methylPREDNISolone SS 125 MG/2 ML VIAL IVP SCH ×3 (06:00→11:19)
[2022-04-02] MEDS: LEVOTHYROXINE 0.025 MG TAB PO SCH (06:00)
[2022-04-02 07:34] LABS: CARBON DIOXIDE 28.2 mmol/L (21-32); CHLORIDE 110 mmol/L (98-107); CREATININE 1.2 mg/dL (0.6-1.3); GLUCOSE 133 mg/dL (74-106); POTASSIUM 3.2 mmol/L (3.5-5.1); SODIUM SERUM 147 mmol/L (136-145); UREA NITROGEN, BLOOD 30 mg/dL (7-18)
[2022-04-02 07:40] LABS: BASOPHILS % (AUTO) 0.1 % (0.0-2.0); EOSINOPHILS % (AUTO) 0.3 % (0.0-4.0); HEMATOCRIT 32.5 % (36-52); HEMOGLOBIN 10.9 g/dL (12.0-18.0); LYMPHOCYTES # (AUTO) 0.8 K/uL (2.0-11.5); LYMPHOCYTES % (AUTO) 8.3 % (20.5-51.1); MEAN CORPUSCULAR HEMOGLOBIN 32 pg (27-31); MEAN CORPUSCULAR HGB CONC 33 g/dL (33-37); MEAN CORPUSCULAR VOLUME 94.1 fL (80-94); MONOCYTES # (AUTO) 0.2 K/uL (0.8-1.0); MONOCYTES % (AUTO) 2.3 % (1.7-9.3); PLATELET COUNT (AUTO) 144 K/uL (140-450); RED BLOOD CELL COUNT(AUTO) 3.45 MIL/uL (4.20-6.10); RED CELL DISTRIBUTION WIDTH 14.2 % (11.6-13.7); WHITE BLOOD COUNT (AUTO) 10.1 K/uL (4.8-10.8)
--- NOTE | 2022-04-02 07:49 | NUR ---
RECEIVED PT CARE AND REPORT FROM NAN REYES. PT IS RESTING IN BED ON LEFT SIDE WITH OU CLOSED. NO VISIBLE S/S OF DISTRESS, DISCOMFORT, PAIN OR SOB. CALL LIGHT IS WITHIN REACH, ALL NEEDS MET AT THIS TIME.
[2022-04-02 08:00] VITALS: BP 152/84
[2022-04-02] MEDS: CARBIDOPA/LEVODOPA 25/100 MG 1 TAB PO SCH ×3 (08:00→17:00)
--- NOTE | 2022-04-02 08:00 | NUR ---
BILAT SOFT WRIST RESTRAINTS INTACT. NO VISIBLE REDNESS, SWELLING OR PAIN AROUND BILAT SITES. RESTRAINTS INTACT.
[2022-04-02] MEDS: FUROSEMIDE 20 MG/2 ML VIAL IVP SCH (08:50)
[2022-04-02] MEDS: PRAMIPEXOLE 0.5 MG TAB PO SCH (08:51)
[2022-04-02] MEDS: MIDODRINE 5 MG TAB PO SCH (08:51)
[2022-04-02] MEDS: PANTOPRAZOLE 40 MG TABEC PO SCH (08:51)
[2022-04-02] MEDS: ENTACAPONE 200 MG TAB PO SCH (08:51)
[2022-04-02] MEDS: GABAPENTIN 100 MG CAP PO SCH (08:51)
[2022-04-02] MEDS: AZITHROMYCIN 500 MG in DEXTROSE 5% 250 ML IV SCH (08:52)
[2022-04-02] MEDS: MULTIVITAMIN/MINERALS 1 TAB PO SCH (08:52)
--- NOTE | 2022-04-02 09:43 | NUR ---
PATIENT HAS BEEN SCREENED AND CATEGORIZED MODERATE NUTRITION RISK. PATIENT WILL BE SEEN WITHIN 3-5 DAYS OF ADMISSION. / REVIEWED BY VIVIANE DIETRICH RD
--- NOTE | 2022-04-02 09:45 | NUR ---
PT HAD LARGE AMOUNT OF BLOODLY PHLEGM ON SHOULDER, GOWN AND HANGING FROM MOUTH. CLEANED PATIENT AND SUCTIONED MOUTH. TEXTED DR. JUAREZ TO INFORM. CALLED RT HARINI TO REPORT. STATED SHE WOULD BE ON HER WAY ONCE SHE FINISHED WITH PT SHE WAS CURRENTLY WITH. NO NEW ORDERS FROM DOCTOR.
--- NOTE | 2022-04-02 10:00 | NUR ---
BILAT SOFT WRIST RESTRAINTS INTACT. NO VISIBLE REDNESS, SWELLING OR PAIN AROUND BILAT SITES. RESTRAINTS INTACT.
[2022-04-02] MEDS: DEXT 5% /NACL 0.9% 1,000 ML IV SCH (11:19)
[2022-04-02 12:00] VITALS: BP 120/63
--- NOTE | 2022-04-02 12:00 | NUR ---
BILAT SOFT WRIST RESTRAINTS INTACT. NO VISIBLE REDNESS, SWELLING OR PAIN AROUND BILAT SITES. RESTRAINTS INTACT.
--- NOTE | 2022-04-02 12:45 | NUR ---
PATIENT FAMILY AT BEDSIDE. FAMILY REQUESTED THAT RESTRAINTS BE REMOVED WHILE THEY ARE PRESENT. EDUCATED FAMILY THAT RESTRAINTS CAN BE RELEASED LONG THEY ARE PRESENT BUT MUST BE PLACED BACK ON PATIENT IF PATIENT BEHAVIOR REQUIRES THEM. BILAT SOFT WRIST RESTRAINTS REMOVED AT THIS TIME.
--- NOTE | 2022-04-02 13:50 | NUR ---
PT. WITH LOW JAN SCALE AT HIGH RISK, CONTINUE TO FOLLOW PRESSURE INJURY PREVENTION INTERVENTIONS. -POSITIONING: TURN AND REPOSITION PATIENT Q 2H OR SOONER USE PILLOWS TO KEEP BONY PROMINENCES FROM DIRECT CONTACT WITH SURFACES USE REPOSITIONING WEDGES TO PROVIDE 30-DEGREE ANGLE FOR SIDE LYING POSITIONS OFFLOADING OR FOAM DRESSING TO ALL TUBING TO PREVENT MEDICAL DEVICES RELATED PRESSURE INJURY -RE-EVALUATING AND MANAGING INCONTINENCE MONITOR SKIN CONDITION DURING POSITION CHANGE DO NOT MASSAGE REDNESS, BONY PROMINENCES FREQUENT HARLEY-CARE AND PROVIDE BARRIER CREAMS PRN IF SOILING MOISTURE CONTROL BY OFFER BED MEHTA/URINAL /ABSORBENT PAD TO WICK AND HOLD MOISTURE KEEP SKIN DRY AND PROTECT FROM FRICTION -MANAGE FRICTION/SHEAR/MOBILITY KEEP HOB AT THE LOWEST LEVEL OF ELEVATION NO MORE THAN 30 DEGREE UNLESS OTHERWISE CONTRAINDICATED USE LIFT SHEET OR TRANSFER DEVICE TO MOVE PATIENT AND PREVENT LATERAL SHEER. PROTECT HEELS, ELBOWS BONY PROMINENCES WITH SKIN BERRIES OR FOAM DRESSING IF EXPOSED TO FRICTION OFFLOAD BILATERAL HEELS BY PLACING PILLOWS UNDER CALVES AT ALL TIMES, UNLESS OTHERWISE CONTRAINDICATED -PRESSURE REDISTRIBUTION SURFACE THERAPY JULIO CESAR ISOFLEX MATTRESS -NUTRITION: PLEASE FOLLOW RD RECOMMENDATIONS AND OFFER NUTRITION SUPPLEMENTS IF ORDERED. PLEASE CONTACT WOUND CARE NURSE FOR ANY QUESTION AND CHANGE OF WOUND CONDITION
--- NOTE | 2022-04-02 14:00 | NUR ---
FAMILY STILL PRESENT AT BEDSIDE. BILAT SOFT RESTRAINTS REMAIN OFF OF PATIENT. PATIENT IS RESTING WITH OU CLOSED AND APPEARS CALM. NO ATTEMPTS OR INCIDENTS OF PATIENT PULLING LINES OR ATTEMPTING TO GET OUT OF BED. WILL CONTINUE TO MONITOR. RESTRAINTS STILL TIED TO BED IN CASE THEY ARE NEEDED.
[2022-04-02 16:00] VITALS: BP 131/70
--- NOTE | 2022-04-02 17:02 | NUR ---
PHYSICIAN HOLD FOR NPO.
--- NOTE | 2022-04-02 17:25 | NUR ---
TEXTED DR. JUAREZ FOR BILAT SOFT WRIST RESTRAINT RENEWAL. ORDERED RENEWAL OF RESTRAINTS.
--- NOTE | 2022-04-02 18:29 | NUR ---
PATIENT IS RESTING ON LEFT SIDE WITH OU CLOSED. NO VISIBLE S/S OF DISTRESS, DISCOMFORT, PAIN OR SOB. FAMILY IS AT BEDSIDES. RESTRAINTS REMAIN OFF AT THIS TIME. CALL LIGHT IS WITHIN REACH, ALL NEEDS HAVE BEEN MET AT THIS TIME. WILL ENDORSE TO [facility] SHIFT NURSE.
--- NOTE | 2022-04-02 19:20 | NUR ---
RECEIVED PATIENT FROM AM NURSE FOR CONTINUITY OF CARE. PT IS STABLE
[2022-04-02 20:00] VITALS: BP 136/72
[2022-04-02] MEDS: methylPREDNISolone SS 40 MG/ML VIAL IVP SCH (20:21)
[2022-04-03] VITALS: BP 130/78
--- NOTE | 2022-04-03 01:00 | NUR ---
CLEANED AND REPOSITIONED ,NO SOB NOTED,WRIST RESTRAINTS ON
[2022-04-03 04:00] VITALS: BP 121/74
[2022-04-03] MEDS: PIPERACILLIN/TAZOBACTAM 3.375 GM in DEXTROSE 5% 50 ML IV SCH ×3 (05:18→21:24)
[2022-04-03] MEDS: LEVOTHYROXINE 0.025 MG TAB PO SCH (05:58)
[2022-04-03] MEDS: DEXT 5% /NACL 0.9% 1,000 ML IV SCH (05:58)
--- NOTE | 2022-04-03 07:20 | NUR ---
ENDORSED PT TO AM NURSE FOR CONTINUITY OF CARE.PT IS STABLE
--- NOTE | 2022-04-03 07:30 | NUR ---
RECEIVED PT CARE AND REPORT FROM NAN REYES. PT IS RESTING IN BED SUPINE WITH OU CLOSED. NO VISIBLE S/S OF DISTRESS, DISCOMFORT, PAIN OR SOB. CALL LIGHT IS WITHIN REACH, ALL NEEDS MET AT THIS TIME.
[2022-04-03 08:00] VITALS: BP 166/98
[2022-04-03] MEDS: CARBIDOPA/LEVODOPA 25/100 MG 1 TAB PO SCH ×3 (08:00→17:35)
--- NOTE | 2022-04-03 08:00 | NUR ---
PATIENT ON BILAT SOFT WRIST RESTRAINTS. SKIN INTACT WITHOUT REDNESS, SWELLING OR PAIN. WILL CONTINUE TO MONITOR BEHAVIOR.
[2022-04-03] MEDS: DEXT 5% / NACL 0.45% 1,000 ML IV SCH (08:11)
[2022-04-03] MEDS: MIDODRINE 5 MG TAB PO SCH (09:00)
[2022-04-03] MEDS: FUROSEMIDE 20 MG/2 ML VIAL IVP SCH (09:00)
[2022-04-03] MEDS: PANTOPRAZOLE 40 MG TABEC PO SCH (09:00)
[2022-04-03] MEDS: ENTACAPONE 200 MG TAB PO SCH (09:00)
[2022-04-03] MEDS: MULTIVITAMIN/MINERALS 1 TAB PO SCH (09:00)
[2022-04-03] MEDS: GABAPENTIN 100 MG CAP PO SCH (09:00)
[2022-04-03] MEDS: PRAMIPEXOLE 0.5 MG TAB PO SCH (09:00)
[2022-04-03] MEDS: AZITHROMYCIN 500 MG in DEXTROSE 5% 250 ML IV SCH (09:00)
[2022-04-03] MEDS: methylPREDNISolone SS 40 MG/ML VIAL IVP SCH ×2 (09:00→21:25)
--- NOTE | 2022-04-03 09:15 | NUR ---
PATIENT BP 166/98 WITH HR 76. BLOOD PRESSURE DOUBLE CHECKED, CONTINUES TO BE SBP >160. TEXTED DR. JUAREZ TO REPORT. REMINDED THAT PATIENT IS NPO D/T SWALLOW EVAL FAILURE. AWAITING ORDERS.
--- NOTE | 2022-04-03 09:37 | NUR ---
REMOVED LEFT WRIST IV D/T IV NOT FLUSHING. IV INTACT. SITE INTACT WITHOUT REDNESS OR SWELLING. ATTEMPTED TO START NEW IV ON PATIENT X2 WITHOUT SUCCESS. PT IS A HARDSTICK. TEXTED DR. JUAREZ TO REPORT AND REQUEST PICC LINE INSERTION. DOCTOR ORDERED PICC LINE. WILL OBTAIN CONSENT FROM FAMILY. TEXTED PICC LINE NURSE DANIEL WITH ORDER FOR PATIENT.
[2022-04-03] MEDS ORDERED: hydrALAZINE 20 MG/ML VIAL IVP PRN (10:15)
--- NOTE | 2022-04-03 10:15 | NUR ---
RECEIVED ORDER FOR HYDRALAZINE 10MG PRN Q.12 HR FOR SBP >160. ORDER PLACED.
--- NOTE | 2022-04-03 10:30 | NUR ---
OBTAINED CONSENT FROM DAUGHTER. CONSENT FORM PLACED IN FRONT OF CHART FOR DR TO SIGN. TEXTED DR. JUAREZ THAT CONSENT FORM IN CHART FOR HER TO SIGN. Addendum: 04/03/22 at 1115 by Agency Dontrell REYES RN CONSENT FOR PICC LINE INSERTION.
--- NOTE | 2022-04-03 11:14 | NUR ---
1100 RECEIVED CALL FROM PICC LINE NURSE DANIEL. ASKED IF ULTRASOUND CAN BE BROUGHT TO PT ROOM AND SUPPLIES FOR PICC INSERTION. OBTAINED ULTRASOUND FROM ER AND PLACED IN PT ROOM. PLACED POWER PICC LINE INSERTION KIT, BIOPATCH, STERILE GLOVES SIZE 8 AND IV CAP AT BEDSIDE. CONSENT FOR PICC HAS NOT BEEN SIGNED BY DR. JUAREZ. TEXTED DR TO REMIND TO SIGN.
--- NOTE | 2022-04-03 11:27 | NUR ---
DANIEL PICC LINE NURSE PRESENT FOR PICC LINE INSERTION.
[2022-04-03 12:00] VITALS: BP 151/79
[2022-04-03] MEDS ORDERED: ACETYLCYSTEINE 20% (200 MG/ML) 200 MG/ML VIAL INH SCH (14:00)
--- NOTE | 2022-04-03 15:51 | NUR ---
DC PLANNING ASSESSMENT COMPLETE PLEASE REFER TO ASSESSMENT FOR DETAILS PER DAGOBERTO, MAUREEN DC PLAN IS FOR [place] [facility] [place]CE MEDICALLY STABLE. Addendum: 04/03/22 at 1552 by Tono Connolly SS Amended: Links added. Addendum: 04/07/22 at 1632 by MALIK MCMULLEN RECEIVED ORDER TO ARRANGE SNF FOR PT. DC CREDIT PORTFOLIO MANAGER FAXED ORDER [place] [facility]. SPOKE TO ANSLEY PT WAS ACCEPTED [place] [facility] [address] [facility] . PT WILL BE GOING TO [address] UNDER THE CARE OF DR. JUAREZ. ALF MEDINA ARRANGED WITH ENOCH AT [facility] WITH PICKUP TIME BETWEEN [phone]. NURSE BARLETA, PT SISTER GOYO, AND DAUGHTER DAGOBERTO AWARE OF THE ABOVE INFORMATION.
[2022-04-03 16:00] VITALS: BP 136/82
[2022-04-03] MEDS: POTASSIUM CHLORIDE 10 MEQ TABER PO PRN (17:35)
--- NOTE | 2022-04-03 18:00 | NUR ---
RESTRAINTS BACK ON PATIENT. BILAT SOFT WRIST. SKIN INTACT WITHOUT REDNESS, PAIN OR SWELLING.
--- NOTE | 2022-04-03 18:16 | NUR ---
RECEIVED ORDER FOR BILAT SOFT WRIST RESTRAINT RENEWAL. ORDER PLACED.
--- NOTE | 2022-04-03 18:35 | NUR ---
PT IS RESTING IN BED SEMI FOWLERS WITH OU CLOSED. NO VISIBLE S/S OF DISTRESS, DISCOMFORT, PAIN OR SOB. FAMILY IS AT BEDSIDE. CALL LIGHT IS WITHIN REACH, FLUIDS RUNNING VIA ANH PICC. ALL NEEDS HAVE BEEN MET AT THIS TIME. WILL ENDORSE TO NOC SHIFT.
[2022-04-03 20:00] VITALS: BP 118/55
[2022-04-04] VITALS: BP 156/82
[2022-04-04 04:00] VITALS: BP 158/85
[2022-04-04] MEDS: PIPERACILLIN/TAZOBACTAM 3.375 GM in DEXTROSE 5% 50 ML IV SCH ×3 (04:35→21:42)
[2022-04-04] MEDS: LEVOTHYROXINE 0.025 MG TAB PO SCH (05:57)
--- NOTE | 2022-04-04 07:15 | NUR ---
RECEIVED BEDSIDE REPORT FOR CONTINUITY OF CARE. PT CONFUSED. SR ON MONITOR. PICC LINE TO ANH INFUSING D5 1/2NS AT 60ML/HR. BILATERAL SOFT WRIST RESTRAINTS IN PLACE D/T PULLING, NO S/SX OF INJURY. GENERALIZED WEAKNESS. STANDARD PRECAUTION. BED LOCKED AND IN LOWEST POSITION.
[2022-04-04 08:00] VITALS: BP 170/86
[2022-04-04] MEDS: PANTOPRAZOLE 40 MG TABEC PO SCH (08:47)
[2022-04-04] MEDS: GABAPENTIN 100 MG CAP PO SCH (08:47)
[2022-04-04] MEDS: CARBIDOPA/LEVODOPA 25/100 MG 1 TAB PO SCH ×3 (08:47→16:41)
[2022-04-04] MEDS: PRAMIPEXOLE 0.5 MG TAB PO SCH (08:47)
[2022-04-04] MEDS: ENTACAPONE 200 MG TAB PO SCH (08:48)
[2022-04-04] MEDS: MULTIVITAMIN/MINERALS 1 TAB PO SCH (08:48)
[2022-04-04] MEDS: methylPREDNISolone SS 40 MG/ML VIAL IVP SCH ×2 (08:48→21:42)
[2022-04-04] MEDS: AZITHROMYCIN 500 MG in DEXTROSE 5% 250 ML IV SCH (08:49)
[2022-04-04] MEDS: MIDODRINE 5 MG TAB PO SCH ×2 (09:00→12:00)
[2022-04-04 09:07] LABS: ALBUMIN 2.7 g/dL (3.4-5.0); ANION GAP 8.1 (8-16); ASPARTATE AMINOTRANSFERASE 22 U/L (15-37); CARBON DIOXIDE 30.1 mmol/L (21-32); CHLORIDE 112 mmol/L (98-107); CREATININE 1.1 mg/dL (0.6-1.3); GLUCOSE 136 mg/dL (74-106); POTASSIUM 3.2 mmol/L (3.5-5.1); SODIUM SERUM 147 mmol/L (136-145); TOTAL BILIRUBIN 0.8 mg/dL (0.0-1.0); UREA NITROGEN, BLOOD 30 mg/dL (7-18)
[2022-04-04 09:10] LABS: HEMATOCRIT 35.7 % (36-52); HEMOGLOBIN 11.9 g/dL (12.0-18.0); LYMPHOCYTES # (AUTO) 0.9 K/uL (2.0-11.5); LYMPHOCYTES % (AUTO) 8.7 % (20.5-51.1); MEAN CORPUSCULAR HEMOGLOBIN 31 pg (27-31); MEAN CORPUSCULAR HGB CONC 33 g/dL (33-37); MEAN CORPUSCULAR VOLUME 93.9 fL (80-94); MONOCYTES # (AUTO) 0.5 K/uL (0.8-1.0); MONOCYTES % (AUTO) 5.2 % (1.7-9.3); NEUTROPHILS # (AUTO) 8.4 K/uL (1.8-7.7); NEUTROPHILS % (AUTO) 86.1 % (42.2-75.2); PLATELET COUNT (AUTO) 159 K/uL (140-450); WHITE BLOOD COUNT (AUTO) 9.7 K/uL (4.8-10.8)
[2022-04-04] MEDS: DEXT 5% / NACL 0.45% 1,000 ML IV SCH ×2 (09:20→17:15)
[2022-04-04] MEDS ORDERED: MORPHINE SULFATE 2 MG/ML SYR IVP PRN (09:30)
--- NOTE | 2022-04-04 09:57 | NUR ---
ADMINISTERED PRN MORPHINE FOR GENERAL DISCOMFORT AND INCREASED FLACC.
--- NOTE | 2022-04-04 10:01 | NUR ---
PATIENT ASSESSMENT COMPLETED; REVIEWED CXR 04/03/22 12:57; REVIEWED DR. HELDER MORGAN ASSESSMENT AND PLAN 04/03/22 13:41; ALARM INSTALLATION TECHNICIAN TO REFER TO FOREMENTIONED
--- NOTE | 2022-04-04 10:08 | NUR ---
DAUGHTER AT BEDSIDE. UPDATED ON POC. PT K+ CAME BACK 3.2 AND WITH GENERAL DISCOMFORT AND BP 170/86. NOTIFIED DR. JUAREZ, ORDERS RECEIVED.
--- NOTE | 2022-04-04 10:47 | NUR ---
DR. HELDER MORGAN ROUNDING AT PATIENT BEDSIDE REVIEWED PULMONARY AND OXYGEN STATUS VORBO: BID HHN THERAPY FOR 3 DAYS WITH UD ALBUTEROL 2.5mg AND MUCOMYST 1ml; CPT BID; OXYGEN SATURATION GREATER THAN 90%
[2022-04-04 12:00] VITALS: BP 94/51
[2022-04-04] MEDS: KCL 20 MEQ/WATER INJ PREMIX 200 ML IV SCH ×2 (13:58→16:42)
[2022-04-04] MEDS: ALBUTEROL 0.083% 2.5 MG/3 ML NEBU INH PRN (15:01)
[2022-04-04 16:00] VITALS: BP 94/101
--- NOTE | 2022-04-04 16:15 | NUR ---
04/04/22 RD INITIAL ASSESSMENT COMPLETED PLEASE REFER TO NUTRITION ASSESSMENT UNDER CARE ACTIVITY FOR ESTIMATED NUTRITIONAL NEEDS. 1. RECOMMEND CARDIAC MECHANICAL SOFT DIET, WITH HONEY THICK LIQUIDS 2. MONITOR PO INTAKE, GI, AND LAB VALUES. 3. RD TO FOLLOW-UP 3-5 DAYS, MODERATE RISK REVIEWED BY VIVIANE DIETRICH RD
--- NOTE | 2022-04-04 19:17 | NUR ---
ENDORSED BEDSIDE REPORT TO MARYA Diaz FOR CONTINUITY OF CARE.
--- NOTE | 2022-04-04 19:25 | NUR ---
RECEIVED REPORT FROM DAY SHIFT NURSE FOR CONTINUITY OF CARE. PT ASLEEP IN BED, FAMILY AT BEDSIDE. DISCUSSED WITH FAMILY POC. WILL MAKE FREQ ROUNDS.
[2022-04-04] MEDS: ALBUTEROL 0.083% 2.5 MG/3 ML NEBU INH SCH (19:40)
[2022-04-04] MEDS: ACETYLCYSTEINE 20% (200 MG/ML) 200 MG/ML VIAL INH SCH (19:41)
[2022-04-04 20:00] VITALS: BP 110/57
[2022-04-05] VITALS: BP 144/88
[2022-04-05 04:00] VITALS: BP 152/93
[2022-04-05] MEDS: PIPERACILLIN/TAZOBACTAM 3.375 GM in DEXTROSE 5% 50 ML IV SCH ×3 (05:50→22:00)
[2022-04-05] MEDS: LEVOTHYROXINE 0.025 MG TAB PO SCH (06:30)
[2022-04-05] MEDS: ALBUTEROL 0.083% 2.5 MG/3 ML NEBU INH SCH (07:15)
[2022-04-05] MEDS: ACETYLCYSTEINE 20% (200 MG/ML) 200 MG/ML VIAL INH SCH (07:16)
[2022-04-05 07:50] LABS: BASOPHILS % (AUTO) 0.1 % (0.0-2.0); HEMATOCRIT 33.2 % (36-52); HEMOGLOBIN 11.2 g/dL (12.0-18.0); LYMPHOCYTES # (AUTO) 0.8 K/uL (2.0-11.5); LYMPHOCYTES % (AUTO) 8.4 % (20.5-51.1); MEAN CORPUSCULAR HEMOGLOBIN 32 pg (27-31); MEAN CORPUSCULAR HGB CONC 34 g/dL (33-37); MEAN CORPUSCULAR VOLUME 94.1 fL (80-94); MONOCYTES # (AUTO) 0.5 K/uL (0.8-1.0); MONOCYTES % (AUTO) 4.7 % (1.7-9.3); NEUTROPHILS # (AUTO) 8.7 K/uL (1.8-7.7); NEUTROPHILS % (AUTO) 86.8 % (42.2-75.2); PLATELET COUNT (AUTO) 152 K/uL (140-450); RED BLOOD CELL COUNT(AUTO) 3.53 MIL/uL (4.20-6.10); RED CELL DISTRIBUTION WIDTH 14.2 % (11.6-13.7); WHITE BLOOD COUNT (AUTO) 10.1 K/uL (4.8-10.8)
[2022-04-05 08:00] VITALS: BP 153/86
[2022-04-05 08:50] LABS: ALBUMIN 2.6 g/dL (3.4-5.0); ANION GAP 10.3 (8-16); ASPARTATE AMINOTRANSFERASE 9 U/L (15-37); CARBON DIOXIDE 28.7 mmol/L (21-32); CHLORIDE 109 mmol/L (98-107); GLUCOSE 172 mg/dL (74-106); SODIUM SERUM 144 mmol/L (136-145); TOTAL BILIRUBIN 0.5 mg/dL (0.0-1.0); UREA NITROGEN, BLOOD 22 mg/dL (7-18)
[2022-04-05] MEDS: MIDODRINE 5 MG TAB PO SCH (09:45)
[2022-04-05] MEDS: MULTIVITAMIN/MINERALS 1 TAB PO SCH (09:45)
[2022-04-05] MEDS: CARBIDOPA/LEVODOPA 25/100 MG 1 TAB PO SCH ×3 (09:46→17:19)
[2022-04-05] MEDS: PRAMIPEXOLE 0.5 MG TAB PO SCH (09:46)
[2022-04-05] MEDS: methylPREDNISolone SS 40 MG/ML VIAL IVP SCH ×2 (09:47→22:00)
[2022-04-05] MEDS: GABAPENTIN 100 MG CAP PO SCH (09:47)
[2022-04-05] MEDS: PANTOPRAZOLE 40 MG TABEC PO SCH (09:48)
[2022-04-05] MEDS: AZITHROMYCIN 500 MG in DEXTROSE 5% 250 ML IV SCH (09:50)
[2022-04-05] MEDS: DEXT 5% / NACL 0.45% 1,000 ML IV SCH (10:37)
[2022-04-05 12:00] VITALS: BP 180/97
[2022-04-05] MEDS: ENTACAPONE 200 MG TAB PO SCH (12:38)
[2022-04-05] MEDS: ALBUTEROL 0.083% 2.5 MG/3 ML NEBU INH PRN ×2 (15:40→17:30)
[2022-04-05 16:00] VITALS: BP 157/93
--- NOTE | 2022-04-05 19:10 | NUR ---
RECEIVED REPORT FROM DAY SHIFT NURSE FOR CONTINUITY OF CARE. PT ASLEEP IN BED, FAMILY AT BEDSIDE. ON 12 NRB MASK, PT SATTING AT 99%.ANH PICC RUNNING NS @60. PT NOT IN ANY ACUTE DISTRESS. ALL PRECAUTIONS IN PLACE. CALL LIGHT WITHIN REACH.DISCUSSED WITH FAMILY POC. WILL MAKE FREQ ROUNDS.
--- NOTE | 2022-04-05 19:23 | NUR ---
Patient suctioned prn, O2 sat decreased in 80's, placed on face mask @ 12 liters by RT. Family members at bedside participating with care. Emotional support rendered, encouraged to express concerns. Patient resting quietly, continue to monitor closely. Will endorse to in coming nurse.
[2022-04-05 20:00] VITALS: BP 151/103
--- NOTE | 2022-04-05 22:00 | NUR ---
SCHEDULED MEDICATIONS GIVEN. PT TOLERATED WELL. WILL CONTINUE TO MONITOR. O2 SAT AT 97%.
[2022-04-06] VITALS: BP 175/92
--- NOTE | 2022-04-06 01:45 | NUR ---
BP 180/98. PRN HYDRALAZINE GIVEN. WILL CONTINUE TO MONITOR.
[2022-04-06] MEDS: DEXT 5% / NACL 0.45% 1,000 ML IV SCH ×2 (02:35→19:15)
--- NOTE | 2022-04-06 02:45 | NUR ---
REASSESED BP 147/80.
[2022-04-06 04:00] VITALS: BP 140/80
--- NOTE | 2022-04-06 07:05 | NUR ---
RECEIVED REPORT FROM PHYSICIAN ANESTHESIOLOGIST NURSE FOR CONTINUITY OF CARE. PT STABLE AT THIS TIME.
--- NOTE | 2022-04-06 07:27 | NUR ---
PT IS STABLE. NO ACUTE EVENTS THROUGHOUT THE NIGHT.ALL NEEDS ATTENDED. NO S/SX OF DISTRESS AT THIS MOMENT. ALL PRECAUTIONS IN PLACE. CALL LIGHT WITHIN REACH. WILL ENDORSE TO DAY SHIFT NURSE.
--- NOTE | 2022-04-06 07:52 | NUR ---
RECEIVED ON SUPPLEMENTAL OXYGEN AT 12 LPM VIA ADULT MASK POST HHN THERAPY TITRATED FIO2 TO 8 LPM ROUTE DRIVER TO MONITOR AND TITRATED FIO2 TOLERATED ROUTE DRIVER TO NOTIFY RN
[2022-04-06] MEDS: ACETYLCYSTEINE 20% (200 MG/ML) 200 MG/ML VIAL INH SCH ×2 (07:59→19:21)
[2022-04-06 08:00] VITALS: BP 143/78
[2022-04-06] MEDS: CARBIDOPA/LEVODOPA 25/100 MG 1 TAB PO SCH ×3 (08:00→17:17)
[2022-04-06] MEDS: ALBUTEROL 0.083% 2.5 MG/3 ML NEBU INH SCH ×2 (08:01→19:21)
[2022-04-06] MEDS: LEVOTHYROXINE 0.025 MG TAB PO SCH (08:10)
[2022-04-06] MEDS: MIDODRINE 5 MG TAB PO SCH (08:26)
[2022-04-06] MEDS: PANTOPRAZOLE 40 MG TABEC PO SCH (09:58)
[2022-04-06] MEDS: GABAPENTIN 100 MG CAP PO SCH (09:58)
[2022-04-06] MEDS: PRAMIPEXOLE 0.5 MG TAB PO SCH (09:58)
[2022-04-06] MEDS: methylPREDNISolone SS 40 MG/ML VIAL IVP SCH ×2 (09:58→20:45)
[2022-04-06] MEDS: MULTIVITAMIN/MINERALS 1 TAB PO SCH (09:58)
[2022-04-06] MEDS: AZITHROMYCIN 500 MG in DEXTROSE 5% 250 ML IV SCH (09:58)
[2022-04-06] MEDS: ENTACAPONE 200 MG TAB PO SCH (09:58)
--- NOTE | 2022-04-06 10:22 | NUR ---
INÉS/RN NOTIFIED OF FIO2 TITRTATION AT 0752 TO 8 LPM VIA ADULT MASK; SATURATION 98% ON SUPPLEMENTAL OXYGEN AT 8 LPM VIA ADULT MASK TITRATED FIO2 TO 6 LPM FOREMENTIONED RN NOTIFIED
[2022-04-06 11:03] LABS: EOSINOPHILS % (AUTO) 0.1 % (0.0-4.0); HEMATOCRIT 36.2 % (36-52); MEAN CORPUSCULAR HEMOGLOBIN 31 pg (27-31); MEAN CORPUSCULAR HGB CONC 33 g/dL (33-37); MEAN CORPUSCULAR VOLUME 93.7 fL (80-94); MONOCYTES # (AUTO) 0.5 K/uL (0.8-1.0); MONOCYTES % (AUTO) 4.7 % (1.7-9.3); NEUTROPHILS # (AUTO) 9.2 K/uL (1.8-7.7); PLATELET COUNT (AUTO) 156 K/uL (140-450); RED BLOOD CELL COUNT(AUTO) 3.86 MIL/uL (4.20-6.10); RED CELL DISTRIBUTION WIDTH 14.1 % (11.6-13.7); WHITE BLOOD COUNT (AUTO) 10.7 K/uL (4.8-10.8)
[2022-04-06 11:19] LABS: ANION GAP 8.1 (8-16); CARBON DIOXIDE 28.3 mmol/L (21-32); CHLORIDE 102 mmol/L (98-107); GLUCOSE 167 mg/dL (74-106); POTASSIUM 3.4 mmol/L (3.5-5.1); SODIUM SERUM 135 mmol/L (136-145); UREA NITROGEN, BLOOD 18 mg/dL (7-18)
[2022-04-06 11:35] LABS: LYMPHOCYTES % (AUTO) 9.4 % (20.5-51.1); NEUTROPHILS % (AUTO) 85.8 % (42.2-75.2)
[2022-04-06 12:00] VITALS: BP 134/74
[2022-04-06] MEDS ORDERED: KCL 20 MEQ/WATER INJ PREMIX 200 ML IV ONE (12:55)
--- NOTE | 2022-04-06 13:02 | NUR ---
REVIEWED WITH DR. ALLISON ALFONSO HHN AND CPT FREQUENCY ENDING TONIGHT AT 1900; VORBO DR. ALFONSO: HHN THERAPY ALBUTEROL Q6WA AND Q4PRN SOB; MUCOMYST BID 1ml/20% X 3 DAYS; CPT WITH HHN TID; OXYGEN SATURATION GREATER THAN 90%; SUCTION PRN
[2022-04-06 16:00] VITALS: BP 149/86
--- NOTE | 2022-04-06 19:05 | NUR ---
ENDORSED PT TO DOUBLE END PRODUCTION GRINDER NURSE FOR CONTINUITY OF CARE. PT IS STABLE
[2022-04-06 20:00] VITALS: BP 132/92
[2022-04-06] MEDS ORDERED: MIDODRINE 5 MG TAB PO SCH (20:10)
--- NOTE | 2022-04-06 20:10 | NUR ---
BLOOD PRESSURE WAS 86/53. PAGED DR. FROST. ORDER RECEIVED FOR MIDODRINE 10MG ONCE.
--- NOTE | 2022-04-06 20:21 | NUR ---
patients sats on 6l face mask were 100%.lowered fio2 to 2lnc. sats stayed at 100% at this time. no sob noted
--- NOTE | 2022-04-06 20:57 | NUR ---
SCHEDULED MEDICATIONS GIVEN. MIDODRINE 10MG GIVEN. WILL CONTINUE TO MONITOR.
--- NOTE | 2022-04-06 23:40 | NUR ---
PT ASLEEP. NO S/SX OF DISTRESS NOTED. ALL PRECAUTIONS IN PLACE. CALL LIGHT WITHIN REACH. WILL CONTINUE TO MONITOR.
[2022-04-07] VITALS: BP 150/98
--- NOTE | 2022-04-07 00:36 | NUR ---
PT CLEANED AND REPOSITIONED. PT HAD A BOWEL MOVEMENT. O2 SAT AT 99% ON 2L O2.PT NOT IN ANY DISTRESS.ALL PRECAUTIONS IN PLACE.WILL CONTINUE TO MONITOR.
[2022-04-07 04:00] VITALS: BP 160/99
[2022-04-07] MEDS: LEVOTHYROXINE 0.025 MG TAB PO SCH (06:46)
--- NOTE | 2022-04-07 07:05 | NUR ---
receive the patient form the hourly shift rn in rm 111A aox1 admitting diagnosis of sepsis will continue to monitor
[2022-04-07] MEDS: ACETYLCYSTEINE 20% (200 MG/ML) 200 MG/ML VIAL INH SCH ×2 (07:16→19:09)
[2022-04-07] MEDS: ALBUTEROL 0.083% 2.5 MG/3 ML NEBU INH SCH ×3 (07:16→19:08)
[2022-04-07 08:00] VITALS: BP 98/56
[2022-04-07] MEDS: MIDODRINE 5 MG TAB PO SCH (09:24)
[2022-04-07] MEDS: MULTIVITAMIN/MINERALS 1 TAB PO SCH (09:24)
[2022-04-07] MEDS: PANTOPRAZOLE 40 MG TABEC PO SCH (09:24)
[2022-04-07] MEDS: GABAPENTIN 100 MG CAP PO SCH (09:24)
[2022-04-07] MEDS: PRAMIPEXOLE 0.5 MG TAB PO SCH (09:24)
[2022-04-07] MEDS: CARBIDOPA/LEVODOPA 25/100 MG 1 TAB PO SCH ×3 (09:24→18:23)
[2022-04-07] MEDS: methylPREDNISolone SS 40 MG/ML VIAL IVP SCH ×2 (09:25→20:44)
[2022-04-07] MEDS: ENTACAPONE 200 MG TAB PO SCH (09:27)
[2022-04-07 12:00] VITALS: BP 142/81
[2022-04-07] MEDS: DEXT 5% / NACL 0.45% 1,000 ML IV SCH (12:51)
[2022-04-07] MEDS ORDERED: [UNRECOGNIZED DRUG - CODE] INH (13:27)
[2022-04-07] MEDS ORDERED: ZOS3.375PM IV (13:29)
[2022-04-07] MEDS ORDERED: PRED20TA5 PO (13:30)
[2022-04-07 16:00] VITALS: BP 133/99
--- NOTE | 2022-04-07 16:30 | NUR ---
gave report to eli of [facility] for trnsfer to room 34B
--- NOTE | 2022-04-07 18:57 | NUR ---
will endorse to rn night rn for continuity of care . will be discharge to [facility]
[2022-04-07] MEDS: POTASSIUM CHLORIDE 10 MEQ TABER PO PRN (19:11)
--- NOTE | 2022-04-07 19:35 | NUR ---
SELENA. REPORT FROM ZULMA REYES. PATIENT RESTING IN BED, AWAKE, A/OX1. ON 02 AT 3 LITERS VIA N/C. IV OF D5 0.45% NS INFUSING AT THE RIGHT UPPER ARM PICC LINE. DAUGHTER IS AT THE BEDSIDE. AWARE THAT PATIENT IS FOR TRANSFER TONIGHT TO [facility] [place]. SAFETY MEASURES ENFORCED. NO APPEARANCE OF PAIN OR DISCOMFORT NOTED, 0/10.
--- NOTE | 2022-04-07 20:49 | NUR ---
[facility] CAME TO GET PT FOR TRANSFER TO [facility]. REPORT AND PACKET GIVEN.
[2022-04-07 20:52] VITALS: BP 90/50
--- NOTE | 2022-04-07 20:55 | NUR ---
TAKEN TO HOSPITAL LOBBY PARKING IN STABLE CONDITION VIA GURNEY ACCOMPANIED BY AMBULANCE PERSONNEL FOR TRANSFER TO [facility] [place].
== END 2022-04-07 20:55 | DRG 871 ==
LOC: MED 02:45 → MTU 05:24
PROVIDERS: ADMIT Student in an Organized Health Care Education/Training Program; ATTEND Student in an Organized Health Care Education/Training Program
PROC: 5A09357 Assistance with Respiratory Ventilation, Less than 24 Consecutive Hours, Continuous Positive Airway Pressure (ICD-10-PCS; principal; 2022-04-01)
PROC: 02HV33Z Insertion of Infusion Device into Superior Vena Cava, Percutaneous Approach (ICD-10-PCS; 2022-04-03)
PROC: B548ZZA Ultrasonography of Superior Vena Cava, Guidance (ICD-10-PCS; 2022-04-03)
DX: A41.9 Sepsis, unspecified organism (principal); G93.41 Metabolic encephalopathy; J18.9 Pneumonia, unspecified organism; J96.01 Acute respiratory failure with hypoxia; E87.0 Hyperosmolality and hypernatremia; E44.1 Mild protein-calorie malnutrition; E87.20 Acidosis, unspecified; F02.80 Dementia in other diseases classified elsewhere, unspecified severity, without behavioral disturbance, psychotic disturbance, mood disturbance, and anxiety; G20 Parkinson's disease; Z66 Do not resuscitate; R65.20 Severe sepsis without septic shock; D53.9 Nutritional anemia, unspecified; I11.0 Hypertensive heart disease with heart failure; I50.9 Heart failure, unspecified; Z79.899 Other long term (current) drug therapy; Z68.20 Body mass index [BMI] 20.0-20.9, adult
CPT/HCPCS: 36415; 36600; 71045; 80048; 80053; 81001; 82150; 82803; 82948; 83036; 83605; 83690; 83735; 83880; 84100; 84439; 84484; 85025; 85610; 85730; 87040; 87081; 87086; 92526; 93005; 94640; 96374; 96375; 97110; 97112; 97116; 97163-GP; 97530; 99291; J0360; J0456; J1940; J2270; J2405; J2543; J2920; J2930; J3475; J3480; J7060; J7608; J7613; Q0092

== ENCOUNTER 2022-09-02 11:55 | Inpatient (IN) | payer OTHER, MEDICAID ==
[~2022-09-02] VITALS: Ht 172.7 cm; Wt 57.6 kg
[2022-09-02] VITALS (11 sets, daily range): BP systolic 84–131; BP diastolic 51–77; PULSE 100–110; RESP 34–45; TEMP 96.8–97.4; O2SAT 91–100
[~2022-09-02 11:55] MED LIST changes: +BISA-213 RC; +MIDO10TA PO; +PRAM0.5T4 PO; +PRED20TA5 PO; -PRO5 PO; +ZOS3.375PM IV; +[UNRECOGNIZED DRUG - CODE] INH
--- NOTE | 2022-09-02 12:03 | NUR ---
JOANIE BARRAZAS - PATIENT TO ER BED 07
--- NOTE | 2022-09-02 12:07 | NUR ---
87 Y/O MALE BIBA FROM [facility] [place] C/O INCREASED SOB. PER FACILITY, PT IS DNR/DNI BUT WAS REQUESTED BY FAMILY TO COME TO ER. PT IS NOT ON HOSPICE, BUT FAMILY WAS CONCERNED FOR PNUEMONIA AND WANTED HIM EVALUTATED AND TO MAINTAIN CODE STATUS FOR DNR/DNI. PATIENT POSITIONED FOR COMFORT; HOB ELEVATED; BEDRAILS UP X2; BED DOWN. ER MD MADE AWARE OF PT STATUS. CALL LIGHT WITHIN REACH. PT IS AWAKE, ALERT WITH PAIN RESPONSE, DOES NOT SPEAK OR AMBULATE AT THIS TIME. PER FAMILY, PT NORMALLY COMMUNICATES WANTS AND NEEDS. PMH: PARKINSONS, METABOLIC ENCEPHALOPATHY, HYPOTENSION, ETERCOLITIS (CDIFF), HYPOTHYROIDISM, HYPOKALEMIA, DYSPHAGIA NKA
[2022-09-02 12:34] LABS: ANION GAP 17.5 (8-16); ASPARTATE AMINOTRANSFERASE 19 U/L (15-37); CARBON DIOXIDE 25.4 mmol/L (21-32); CHLORIDE 107 mmol/L (98-107); CREATININE 1.7 mg/dL (0.6-1.3); GLUCOSE 139 mg/dL (74-106); POTASSIUM 3.9 mmol/L (3.5-5.1); SODIUM SERUM 146 mmol/L (136-145); TOTAL BILIRUBIN 0.8 mg/dL (0.0-1.0); UREA NITROGEN, BLOOD 36 mg/dL (7-18)
[2022-09-02 12:53] LABS: HEMATOCRIT 37.8 % (36-52); HEMOGLOBIN 12.4 g/dL (12.0-18.0); LYMPHOCYTES # (AUTO) 0.8 K/uL (2.0-11.5); LYMPHOCYTES % (AUTO) 10.9 % (20.5-51.1); MEAN CORPUSCULAR HEMOGLOBIN 32 pg (27-31); MEAN CORPUSCULAR HGB CONC 33 g/dL (33-37); MEAN CORPUSCULAR VOLUME 97.3 fL (80-94); MONOCYTES # (AUTO) 0.2 K/uL (0.8-1.0); MONOCYTES % (AUTO) 2.6 % (1.7-9.3); NEUTROPHILS # (AUTO) 6.4 K/uL (1.8-7.7); NEUTROPHILS % (AUTO) 86.5 % (42.2-75.2); PLATELET COUNT (AUTO) 151 K/uL (140-450); RED BLOOD CELL COUNT(AUTO) 3.88 MIL/uL (4.20-6.10); RED CELL DISTRIBUTION WIDTH 14.9 % (11.6-13.7); WHITE BLOOD COUNT (AUTO) 7.4 K/uL (4.8-10.8)
[2022-09-02 12:57] LABS: PROTHROMBIN TIME 10.3 secs (10.8-13.4)
[2022-09-02] MEDS ORDERED: PIPERACILLIN/TAZOBACTAM 3.375 GM in DEXTROSE 5% 50 ML IV ONE (13:05)
[2022-09-02] MEDS ORDERED: NACL 0.9% 1,000 ML IV ONE (13:05)
[2022-09-02] MEDS ORDERED: HYDROcodone/APAP 7.5/325 MG 1 TAB PO PRN (13:25)
[2022-09-02] MEDS ORDERED: NOREPINEPHRINE 8 MG in DEXTROSE 5% 250 ML IV PRN (13:25)
[2022-09-02] MEDS ORDERED: DOCUSATE SODIUM 100 MG GELCAP PO PRN (13:25)
[2022-09-02] MEDS ORDERED: ONDANSETRON 4 MG/2 ML VIAL IM/IVP PRN (13:25)
[2022-09-02] MEDS ORDERED: POTASSIUM CHLORIDE 40 MEQ, LIDOCAINE MPF 1% 25 MG in NACL 0.9% 250 ML IV PRN (13:25)
[2022-09-02] MEDS ORDERED: ZOLPIDEM 5 MG TAB PO PRN (13:25)
[2022-09-02] MEDS ORDERED: guaiFENesin DM 200/20 MG-10 ML 10 ML UDC PO PRN (13:25)
[2022-09-02] MEDS ORDERED: ACETAMINOPHEN 325 MG TAB PO PRN (13:25)
[2022-09-02] MEDS ORDERED: PIPERACILLIN/TAZOBACTAM 2.25 GM in DEXTROSE 5% 50 ML IV SCH (13:28)
[2022-09-02 13:55] LABS: FREE T4 (FREE THYROXINE) 1.12 ng/dL (0.76-1.46); MAGNESIUM 1.9 mg/dL (1.8-2.4); PHOSPHORUS 3.9 mg/dL (2.5-4.9); THYROID STIMULATING HORMONE 3.55 uIU/mL (0.34-3.74)
[2022-09-02] MEDS ORDERED: PIPERACILLIN/TAZOBACTAM 3.375 GM VIAL IV ONE (13:57)
--- NOTE | 2022-09-02 14:00 | NUR ---
Patient will be admitted to care of DR GOMEZ. Admited to ICU. Will go to room 7. Belongings list completed. Report to CLARIBEL REYES.
--- NOTE | 2022-09-02 14:30 | NUR ---
RECEIVED REPOSRT FROM [facility] FOR ICU ADMIT. PT DIAGNOSIS PNA AND SEPSIS PT FROM [facility] PT V/S 97.5 106 HR 41 RR 100%O2SAT ON BIPAP FUL FACE MASK FIO2 100% BP 119/66 PT STILL IS TACHYPNEIC PT EXERTING MORE EFFORT RESPIRATORY MUSCLE. PT HAS BILATERLA LUNG SOUNDS CRACKLES AND RHONCHI PT APPEARS CONFUSED OPEN EYES WITH UPPER EXTREMITY MOVEMENT SEEMS COOPERATIVE IN COMMAND TO SQUEEZED HANDS OF NURSE. PT HAS 2 IV PERIPHERAL LEFT AC AND LEFT WRIST. PT HAS SOFT NON DISTENDED ABDOMEN. NO BM NO URINE. PT SKIN IS INTACT EXCEPT THE BILATER GREAT TOE YELLOW DISCOLORATION AND PEELING OF LEFT NAIL NO BLEEDING COVER WITH GAUZE. PT CALL LIGHT WITHIN REACH [facility] BED LOW AND LOCKED. WILL CONTINUE TO MONITOR,
--- NOTE | 2022-09-02 14:30 | NUR ---
Pt. arrived from ER via gurney with RN and EMT on heart monitor, and respiratory therapist. Pt. on BiPap NOW tolerating with no acute distress. Pt. with POLST form filled as DNR DNI no family at bedside at pt.'s arrival. Pt. transferred to ICU bed with no difficulty and full assistance. Pt. upon arrival immediately placed ICU on heart monitor. Pt.'s primary RN HAZEL at bedside.
--- NOTE | 2022-09-02 14:38 | NUR ---
TRANSFERRED PT FROM ER. BIPAP PLUGGED INTO RED OUTLET, CURRENT SETTING 11/13, F12, 0.9, 100%. HIGH FLOW ON STAND BY. CALL LIGHT WITHIN REACH OF PATIENT. WILL CONTINUE TO MONITOR.
--- NOTE | 2022-09-02 15:07 | NUR ---
CALLED PARAM Herr DAUGHTER RESPONSIBLE GREEN PARTY FOR PT. DAUGHTER CONFIRMED PT CODE STATUS IS DNR/DNI IS CORRECT. MADE AWARE OF ADMITTING DIAGNOSIS AND NURSING PLAN OF CARE AND CLOSED MONTIORING VERBALIZED UNDERSTANDING
--- NOTE | 2022-09-02 15:38 | NUR ---
PATIENT HAS BEEN SCREENED AND CATEGORIZED HIGH NUTRITION RISK. PATIENT WILL BE SEEN WITHIN 1-2 DAYS OF ADMISSION. 09/03/22-09/04/[address]
--- NOTE | 2022-09-02 15:39 | NUR ---
[facility] helper animal laboratory called regarding patients 6.9 lactic acid. ERIC Joseph made MD Vazquez aware about his lactic acid levels.
--- NOTE | 2022-09-02 15:40 | NUR ---
DAGOBERTO THE OTHER DAUGHTER OF PT CAME AT BEDSIDE AWARE OF DIAGNOSIS AND NURSING PLAN OF CARE AND MD ORDERS AND TREATMENT INITIATED. HAS CONCERN FOR DISCOLORATION OF THE TOES AND NAIL IS PEELING WILL CALL MD FOR ORDERS. Addendum: 09/02/22 at 1755 by HAZEL TEIXEIRA RN DAGOBERTO BETHEA TEL NO [phone]
[2022-09-02] MEDS: LORazepam 2 MG/ML VIAL IVP PRN ×2 (15:45→22:25)
[2022-09-02] MEDS: DEXT 5% /NACL 0.9% 1,000 ML IV SCH (15:49)
--- NOTE | 2022-09-02 15:50 | NUR ---
ABG RESULTS WALKED TO BIRD TENDER. DR GOMEZ NOTIFIED, REFERRED TO LOSS CONTROL CONSULTANT. DR. BAIRES NOTIFIED.
--- NOTE | 2022-09-02 16:00 | NUR ---
Harp catheter placed per MD orders. Pt. needs strict I/O observation and incontinence management. Catheter placed using sterile technique with no difficulty. Catheter pushed up to the "Y" and clear and yellow urine seen on collection tubing. Balloon inflated with no difficulty and no acute distress. Urine sample collected and sent to lab. Pt. tolerated with no difficulty. Harp cath. left draining to gravity and with NO dependent loops. Pt.'s primary RN HAZEL at bedside to assist.
[2022-09-02] MEDS ORDERED: NOREPINEPHRINE 4 MG in DEXTROSE 5% 250 ML IV PRN (16:10)
--- NOTE | 2022-09-02 16:10 | NUR ---
DR. GOMEZ CALLED BACK 2ND TIME FOR LACTIC LEVEL 6.9 NO NEW ORDER JUST MONITOR. Addendum: 09/02/22 at 1621 by HAZEL TEIXEIRA RN ADDITIONAL MD MADE AWARE OF LATEST ABG RESULT FROM RT PER MD CALL BRICK CLEANER.
[2022-09-02 16:45] LABS: APPEARANCE,URINE CLEAR (CLEAR); BILIRUBIN,URINE NEGATIVE (NEGATIVE); BLOOD, URINE 3+ (NEGATIVE); COLOR,URINE YELLOW (YELLOW); LEUKOCYTE ESTERASE ,URINE NEGATIVE (NEGATIVE); NITRITE, URINE NEGATIVE (NEGATIVE); UGLUCOSE NEGATIVE (NEGATIVE)
--- NOTE | 2022-09-02 17:00 | NUR ---
Dr. Valentine notified of pt.'s ABG via text message. MD is pulmonary consult to pt. per Dr. GOMEZ. NO new orders as of now. Addendum: 09/03/22 at 1418 by ANSELMO FELICIANO RN Note corrected for time of MD contact. This RN contact Dr. Valentine at 1615 according to hospital policy and protocol.
[2022-09-02 17:12] LABS: RBC,URINE 20-50 /HPF (0-5)
--- NOTE | 2022-09-02 18:30 | NUR ---
SANDOR CAME IN FOR ORDER OF DR GOMEZ TO BILATERAL LOWER EXT DUPLEX STUDY TO R/O PAD. FOR BILATERAL GREAT TOENAIL DISCOLORATION AND
--- NOTE | 2022-09-02 19:22 | NUR ---
ENDORSED PT TO NIKOLAY REYES ORAL SURGERY PHYSICIAN SBAR OF PT AND ALL QUESTIONS ANSWERED.
--- NOTE | 2022-09-02 19:30 | NUR ---
TRANSFER OF CARE FROM DAY SHIFT, REPORT RECEIVED FROM HAZEL Gerber RN. PATIENT RECEIVED LYING IN BED WITH BIPAP IN PLACE WITH TH CURRENT SETTINGS: I/E = 12/6, RATE =12, FIO2 = 90%. PATIENT IS CURRENTLY NON-VERBAL BUT IS ABLE TRACK. PATIENT'S LUNG SOUNDS EXHIBIT CRACKLES. PATIENT IS CURRENTLY NPO, HAS 20G PERIPHERAL IV IN THE LEFT WRIST SKIN IS INTACT. VITALS AT START OF SHIFT ARE FOLLOWS: TEMP = 97.1F, HR = 65, O2 SAT = 100%, RESP = 15, BP = 153/67. WILL CONTINUE TO MONITOR PATIENT FOR ANY ADVERSE CHANGES IN CONDITION AND NOTIFY MD APPROPRIATE.
[2022-09-02] MEDS: PIPERACILLIN/TAZOBACTAM 3.375 GM in DEXTROSE 5% 50 ML IV SCH (21:28)
--- NOTE | 2022-09-02 22:30 | NUR ---
RT AT BEDSIDE, ADJUSTMENTS MADE TO BIPAP SETTINGS FIO2 = 65%
[2022-09-03] VITALS (22 sets, daily range): BP systolic 90–145; BP diastolic 47–91; PULSE 10–122; RESP 34–54; TEMP 96.8–99.2; O2SAT 94–100
--- NOTE | 2022-09-03 01:00 | NUR ---
RT AT BEDSIDE, NO ADJUSTMENTS MADE TO BIPAP
[2022-09-03] MEDS: DEXT 5% /NACL 0.9% 1,000 ML IV SCH ×3 (02:01→11:39)
[2022-09-03 04:54] LABS: BASOPHILS % (AUTO) 0.1 % (0.0-2.0); HEMATOCRIT 32.4 % (36-52); HEMOGLOBIN 10.9 g/dL (12.0-18.0); LYMPHOCYTES # (AUTO) 0.9 K/uL (2.0-11.5); LYMPHOCYTES % (AUTO) 9.9 % (20.5-51.1); MEAN CORPUSCULAR HEMOGLOBIN 32 pg (27-31); MEAN CORPUSCULAR HGB CONC 34 g/dL (33-37); MEAN CORPUSCULAR VOLUME 96.5 fL (80-94); MONOCYTES # (AUTO) 0.3 K/uL (0.8-1.0); MONOCYTES % (AUTO) 2.8 % (1.7-9.3); NEUTROPHILS # (AUTO) 8.1 K/uL (1.8-7.7); NEUTROPHILS % (AUTO) 87.2 % (42.2-75.2); PLATELET COUNT (AUTO) 114 K/uL (140-450); RED BLOOD CELL COUNT(AUTO) 3.35 MIL/uL (4.20-6.10); RED CELL DISTRIBUTION WIDTH 14.9 % (11.6-13.7); WHITE BLOOD COUNT (AUTO) 9.3 K/uL (4.8-10.8)
[2022-09-03] MEDS: PIPERACILLIN/TAZOBACTAM 3.375 GM in DEXTROSE 5% 50 ML IV SCH ×3 (04:54→20:48)
[2022-09-03 05:19] LABS: ANION GAP 13.1 (8-16); CARBON DIOXIDE 26.3 mmol/L (21-32); CHLORIDE 113 mmol/L (98-107); CREATININE 1.2 mg/dL (0.6-1.3); GLUCOSE 130 mg/dL (74-106); POTASSIUM 4.4 mmol/L (3.5-5.1); SODIUM SERUM 148 mmol/L (136-145); UREA NITROGEN, BLOOD 30 mg/dL (7-18)
--- NOTE | 2022-09-03 07:00 | NUR ---
RECEIVED REPORT FROM NIKOLAY REYES PT ADMIT FOR PNA AND SEPSIS PT VS TODAY 96.8, 91 HR SINUS RHYTHYM 97% ON BIPAP FULL FACE MASK FIO2 65% 37 RR TACHYPNEIC BP 96/58 PT OPEN EYES HAS STRONG CLAM DREDGE BOAT CAPTAIN BILATERAL UPPER HAND, PT HAS CRACKLES ON BILATERAL LUNGS SOUND ON AUSCULTATION PT HAS SOFT NON DISTENDED ABDOMEN HYPOACTIVE BOWEL SOUND. PT HAS POWERS CATH INTACT PATENT DRAINING YELLOW URINE. PT HAS LEFT WRIST IV PERIPHRAL INTACT WITH D5NS =100ML RUNNING PT HAS INTACT SKIN EXCEPT THE DISCOLORATION OF BOTH BILATER GREAT TOE NAIL AND PER REPOSRT OF GREASE MONKEY PT HAS REDNESS ON LEFT SIDE OF CHEEK AND LOWER LIP DISCOLORATION.. CALL LIGHT WITHIN REACH KE BED LOCKED AND IN LOW POSITION. WILL CONTINUE TO MONITOR.
--- NOTE | 2022-09-03 07:12 | NUR ---
TRANSFER OF CARE TO DAY SHIFT, CARE OF PATIENT ENDORSED HAZEL Gerber RN
--- NOTE | 2022-09-03 08:00 | NUR ---
CALLED LAB FOR FFUP ON LACTIC STAT BLOOD DRAW CAME IN AND DONE BLOOD DRAW WILL AWAIT FOR RESULT
[2022-09-03 08:13] LABS: T4 (THYROXINE) 6.8 ug/dL (4.5-12.0)
--- NOTE | 2022-09-03 08:38 | NUR ---
LAB CALLED FOR LACTIC LEVEL 3.[address] LUIS AND MADE HIM AWARE AWAITING CALL BACK
--- NOTE | 2022-09-03 08:38 | NUR ---
DR. LUIS CALLED BACK FOR LACTIC LEVEL RESULT WITH NEW ORDER FOR LACTIC LEVEL DRAW FOR AFTERNOON MADE AWARE OF LOWER LIP PURPLE DISCOLORATION AND LEFT CHEEK REDNESS WITH ORDER FOR LIP ORAL CARE AND WOUND CARE CONSULT.
[2022-09-03] MEDS ORDERED: PANTOPRAZOLE 40 MG TABEC PO SCH (09:00)
--- NOTE | 2022-09-03 09:00 | NUR ---
[facility] REFERRAL FOR PATIENT FOR TUBE FEEDING RECOMMENDATION RECEIVED ON 09/03/22. PATIENT IS HIGH RISK AND WILL BE SEEN TODAY 09/03/22. SARAH [address]
--- NOTE | 2022-09-03 09:08 | NUR ---
DR. WAGNER CAME IN FOR PT AMEE AWARE OF DR LUIS FOR LACTIC LEVEL DRAW PER MD SHE WILL PUT ORDER SHE WILL PUT LACTIC LEVEL DRAW AT 12 NOON AND 1 L NS BOLUS AND ILA CHANGE THE PROTONIX PO TO IV AND WILL ORDER WOUND CARE CONSULT TO BILATERAL GREAT TOE NAL YELLOW DISCOLORATION AWAIITNG FOR MD TO PUT ORDERS IN Addendum: 09/03/22 at 913 by HAZEL TEIXEIRA RN ADDITIONAL REPORT OF COUGH AND UPPER Addendum: 09/03/22 at 918 by HAZEL TEIXEIRA RN ADDITIONAL REPSORT OF COUGHING PT UNABLE TO EXPECTORATE PER MD WILL ORDER COUGH MEDICATIONS.
[2022-09-03] MEDS ORDERED: NACL 0.9% 1,000 ML IV SCH (09:25)
--- NOTE | 2022-09-03 09:25 | NUR ---
RECEIVED ON A TOSIN [email or web address] V60 BIPAP PLUGGED INTO RED OUTLET TOLERATING WELL WITHOUT ADVERSE REACTIONS TO A FULL FACIAL MASK SECURED WITH HEAD GEAR GOOD CHEST RISE ARCHITECTURAL PROJECT MANAGER TO DEFER TO DR. GERTRUDE LUIS TO REVIEW PULMONARY STATUS AND PLAN
[2022-09-03] MEDS: PANTOPRAZOLE 40 MG INJ VIAL IVP SCH ×2 (10:26→20:47)
--- NOTE | 2022-09-03 10:29 | NUR ---
CALLED DR. GERTRUDE LUIS AT [facility] [phone] TO REVIEW PULMONARY STATUS AND PLAN; GUANAKO/EXCHANGE TO PARTH CORTEZ MD; REQUIRED PATIENT INFORMATION AND CALL BACK NUMBER GIVEN [phone]
--- NOTE | 2022-09-03 11:38 | NUR ---
DR. ALLISON ALFONSO ROUNDING REVIEWED PATIENT PULMONARY, BIPAP SETTINGS AND ABG RESULTS 09/02 TETO ALFONSO: HHN DUONEB Q4 AND Q2 PRN SOB; NASOTRACHEAL SUCTION; OXYGEN SATURATION GREATER MARTHA 90%; HIGH FLOW NASAL CANNULA STARTING AT 1500
--- NOTE | 2022-09-03 11:46 | NUR ---
DR. ALFONSO CAME IN AND ASSESS PT AND FAMILY DAGOBERTO AT BEDSIDE EXPLAINED PT CONDITION AND TREATMENT AND PLAN OF CARE ORDER FOR STRICT NPO AND HIGH FLOW TRIAL ST 3 PM CALLED RT ELIAS MADE AWARE. FAMILY VERBALIZED UNDERSTANDING QUESTIONS ANSWERED.
--- NOTE | 2022-09-03 11:50 | NUR ---
WOUND CARE NOTE: PT. WITH LOW JAN SCALE AT HIGH RISK, CONTINUE TO FOLLOW PRESSURE INJURY PREVENTION INTERVENTIONS. PT. ADMITTED WITH OLD HEALED SCAR TISSUE TO SACRAL COCCYX AREA, THIN EASILY TO TORN. PT WITH INTERIOR DESIGN PROFESSOR RELATED SKIN FAILURE FROM BI-PAP TO RIGHT CHEEK ABRASION 6CM IN LENGTH AND LEFT CHEEK SKIN TEAR 3X3X0.1CM WOUND BED PINK AND MOIST, NO ODOR, HARLEY- WOUND SKIN MOIST. UPPER LIP BRUISE FROM INTERIOR DESIGN PROFESSOR BI-PAP MASK. PT. WITH FUNGAL TOE NAILS TO BILATERAL HALLUX, HARLEY-NAIL SKIN DRY AND CLEAN. FAMILY MEMBER AT BED SIDE, POC DISCUSSED WITH COMORBIDITIES DISCUSSED. POC DISCUSSED WITH PRIMARY NURSE HAZEL. RECOMMENDATIONS: HARLEY CARE Q2H AND PRN IF SOILING. APPLY HYDRAGUARD TO SCROTAL, AND SACRALCOCCYX BID AND PRN IF SOILING -CLEANSE CHEEKS, CHIN AND SACRALCOCCYX WITH NS, PAT DRY, APPLY FOAM DRESSING QD AND PRN IF SOILING -POSITIONING: TURN AND REPOSITION PATIENT Q 2H OR SOONER USE PILLOWS TO KEEP BONY PROMINENCES FROM DIRECT CONTACT WITH SURFACES USE REPOSITIONING WEDGES TO PROVIDE 30-DEGREE ANGLE FOR SIDE LYING POSITIONS OFFLOADING OR FOAM DRESSING TO ALL TUBING TO PREVENT MEDICAL DEVICES RELATED PRESSURE INJURY -RE-EVALUATING AND MANAGING INCONTINENCE MONITOR SKIN CONDITION DURING POSITION CHANGE DO NOT MASSAGE REDNESS, BONY PROMINENCES FREQUENT HARLEY-CARE AND PROVIDE BARRIER CREAMS PRN IF SOILING MOISTURE CONTROL BY F/C, ABSORBENT PAD TO WICK AND HOLD MOISTURE KEEP SKIN DRY AND PROTECT FROM FRICTION -MANAGE FRICTION/SHEAR/MOBILITY KEEP HOB AT THE LOWEST LEVEL OF ELEVATION NO MORE THAN 30 DEGREE UNLESS OTHERWISE CONTRAINDICATED USE LIFT SHEET OR TRANSFER DEVICE TO MOVE PATIENT AND PREVENT LATERAL SHEER. PROTECT HEELS, ELBOWS BONY PROMINENCES WITH SKIN BERRIES OR FOAM DRESSING IF EXPOSED TO FRICTION OFFLOAD BILATERAL HEELS BY PLACING PILLOWS UNDER CALVES AT ALL TIMES, UNLESS OTHERWISE CONTRAINDICATED -PRESSURE REDISTRIBUTION SURFACE THERAPY JULIO CESAR ISOFLEX FITO MATTRESS -NUTRITION: PLEASE FOLLOW RD RECOMMENDATIONS AND OFFER NUTRITION SUPPLEMENTS IF ORDERED. PLEASE CONTACT WOUND CARE NURSE FOR ANY QUESTION AND CHANGE OF WOUND CONDITION
[2022-09-03] MEDS ORDERED: ALBUTEROL SULFATE/IPRATROPIU 3 ML SOL IH PRN (11:55)
--- NOTE | 2022-09-03 12:00 | NUR ---
WOUND CARE NURSE CAM IN AND SEE PT AND ASSESS SKIN AND BONY PROMINENCE AND THE REPORTED SKIN PROBLEMS. RECOMMEND LOW AIR LOSS ORDER BED CHANGE LOW AIR LOSS CONNECTED AT THIS TIME..
[2022-09-03] MEDS: LORazepam 2 MG/ML VIAL IVP PRN (12:52)
--- NOTE | 2022-09-03 13:01 | NUR ---
ATIVAN GIVEN PER ORDER FOR ANXIETY PT RR IS 41-50S O2 SAT IS 96-97% ON BIPAP FULL FACE MASK FIO2 65 FREQUENTLY MOVING BILATERAL ARMS SUCTION PT WITH THICK SECRETION NOTED WHITE CREAMY WITH BROWN TINGED SECRETIONS
--- NOTE | 2022-09-03 13:15 | NUR ---
DR. LUIS WAS CALLED BY PRODUCTION SOLDERER EDIN FOR LACTIC LEVEL 3.1 NO NEW ORDER JUST MONITOR AND CONTINUE CURRENT PLAN OF CARE. WILL MONITOR.
--- NOTE | 2022-09-03 13:27 | NUR ---
REMAINS ON BIPAP TO FULL MASK NOTED GOOD CHEST RISE USING STERILE TECHNIQUE NASOTRACHEAL AND OROPHARYNGEAL SUCTION FOR COPIOUS SEMI THICK ESCOBAR SECRETIONS FOLLOWED BY HHN PRN THERAPY NOTED Addendum: 09/03/22 at 1514 by Sagar Tran RT CALL LIGHT CONTROL WITHIN REACH DAUGHTER AT BEDSIDE
--- NOTE | 2022-09-03 14:15 | NUR ---
09/03/22 RD INITIAL ASSESSMENT COMPLETED PLEASE REFER TO NUTRITION ASSESSMENT UNDER CARE ACTIVITY FOR ESTIMATED NUTRITIONAL NEEDS. 1. CONTINUE NPO DIET TOLERATED 2. SWALLOW EVALUATION MAY BE NEEDED PRIOR TO PO DIET GIVEN. IF MEDICALLY APPROPRIATE AND IF TUBE FEEDING RECOMMENDATION IS NEEDED, PLEASE START PATIENT ON JEVITY @ 20ML/HR AND ADVANCE 20ML/HR Q4H OR TOLERATED TO GOAL RATE OF 50ML/HR WITH FWF 180 Q6H. THIS WILL PROVIDE 1,440 CALORIES AND 67 GRAMS OF PROTEIN, MEETING AT LEAST 75% OF PATIENTS ESTIMATED NEEDS. 3. RD WILL CONTINUE TO MONITOR TUBE FEEDING TOLERANCE, WEIGHT/BMI, GI ISSUES AND NUTRITION RELATED LAB VALUES. 4. RD TO FOLLOW-UP 2-3 DAYS, HIGH RISK SARAH PHELPS RD
--- NOTE | 2022-09-03 15:00 | NUR ---
DR. ROACH CAME IN AND ASSESS PT NO NEW ORDER GIVEN AT THIS TIME
[2022-09-03] MEDS: ALBUTEROL SULFATE/IPRATROPIU 3 ML SOL IH SCH ×3 (15:25→22:13)
--- NOTE | 2022-09-03 17:30 | NUR ---
DR. LUIS CAME IN AND MAKE ROUND ASSESS PT AND ABLE TO TALK TO FAMILY REGARDING PT DIAGNOSIS AND TREATMENT DAGOBERTO DAUGHTER AT BEDSIDE AL QUESTIONS ANSWERED VERBALIZED UNDERSTANDING REGARDING ATIVAN REGARDING TACHYPNEIC AND SKIN PROBLEM. PT WAS PUT ON MASK BIPAP WITH GEL FOAM TO NOSE BRIDGE AND AROUND MOUTH.
--- NOTE | 2022-09-03 18:22 | NUR ---
CALLED DR. LUIS REGARDING PT LACTIC LEVEL AT 1600 IS 3.9 AND PT HAS TEMP OF 99.2 VERY WARM TO TOUCH NEW ORDER RECEIVED FOR TYLENOL SUPP 650 MG FOR TEMP 100.4 AND CHANGE HIS IVF TO D51/2 NS AT 100.
[2022-09-03] MEDS ORDERED: ACETAMINOPHEN 650 MG SUPP RC PRN (18:35)
[2022-09-03] MEDS ORDERED: DEXT 5% / NACL 0.45% 1,000 ML IV SCH (19:00)
--- NOTE | 2022-09-03 19:27 | NUR ---
ENDORSED PT TO NIKOLAY BAND SAW OPERATORHOME SALES CONSULTANT FOR PT SBAR ALL QUESTIONS ANSWERED.
--- NOTE | 2022-09-03 19:30 | NUR ---
TRANSFER OF CARE FROM DAY SHIFT, REPORT RECEIVED FROM HAZEL Gerber RN. PATIENT RECEIVED LYING IN BED WITH BIPAP IN PLACE WITH THE CURRENT SETTINGS: I/E = 12/6, RATE =16, FIO2 = 75%. PATIENT IS CURRENTLY NON-VERBAL BUT IS ABLE TRACK. PATIENT'S LUNG SOUNDS EXHIBIT CRACKLES. PATIENT IS CURRENTLY NPO, HAS 20G PERIPHERAL IV IN THE LEFT WRIST PATIENT HAS SKIN BREAKDOWN ON FACE SECONDARY TO BIPAP MASK, AREAS AFFECTED ARE LEFT CHEEK AND LIPS. VITALS AT START OF SHIFT ARE FOLLOWS: HR = 111, O2 SAT = 99%, RESP = 41, BP = 130/73. WILL CONTINUE TO MONITOR PATIENT FOR ANY ADVERSE CHANGES IN CONDITION AND NOTIFY MD APPROPRIATE.
--- NOTE | 2022-09-03 20:28 | NUR ---
PT. DAUGHTER, GOYO POLLARD, DPOA AT THE BEDSIDE. I SPOKE TO HER REGARDING THE CODE STATUS. I ASKED HER IF SHE HAS THE COPY OF HER DPOA. BECAUSE IN THE CHART, THERE IS A POLST FROM [facility] DATED 04/21/22 WHICH IS DNR. GOYO STATED THAT SHE WILL BRING THE DPOA DOCUMENTS TOMORROW. ALSO, I ASKED HER IF THE EVENT THAT THE DAD BLOOD PRESSURE GOES DOWN IF SHE DOESN'T WANT THE DOCTOR TO ORDER MEDICATIONS TO HELP DAD BLOOD PRESSURE. GOYO CLEARLY STATED THAT SHE WANTS THE MEDICATIONS TO INCREASE OR TO NORMALIZE BLOOD PRESSURE, BUT SHE DOESN'T WANT DAD TO BE INTUBATED OR NO FOR CHEST COMPRESSION. I HANDED HER A CODE STATUS FORM AND SHE CHECKED WHAT SHE WANTS FOR HER DAD, TO HAVE ACLS DRUGS/VASOPRESSOR AND BIPAP. BUT NO CHEST COMPRESSION, NO INTUBATION/REINTUBATION, NO DEFIBRILLATION AND NO CARDIOVERSION. GOYO SIGNED THE CODE STATUS FORM. WITNESSED BY ME AND ERIC LINK. WILL ENDORSE TO THE NEXT SHIFT.
--- NOTE | 2022-09-03 20:53 | NUR ---
I CALLED DR. COBURN REGARDING PT. CODE STATUS. I REPORTED TO HIM THAT PT. DNR/DNI. HOWEVER DAUGHTER WANTS DAD TO STILL GET ACLS DRUGS/VASOPRESSOR AND BIPAP. HE STATED " OKAY, THANKS FOR THAT ". WILL ENDORSE TO THE NEXT SHIFT.
--- NOTE | 2022-09-03 22:19 | NUR ---
DR. DOZIER (PODIATRY) AT BEDSIDE
--- NOTE | 2022-09-03 22:20 | NUR ---
RT AT BEDSIDE, NO CHANGES TO BIPAP SETTINGS
[2022-09-04] VITALS (22 sets, daily range): BP systolic 62–140; BP diastolic 49–95; PULSE 83–118; RESP 32–49; TEMP 96.9–100.7; O2SAT 4–100
[2022-09-04] MEDS: ALBUTEROL SULFATE/IPRATROPIU 3 ML SOL IH SCH ×5 (02:55→19:11)
--- NOTE | 2022-09-04 02:58 | NUR ---
RT AT BEDSIDE
[2022-09-04 05:07] LABS: ANION GAP 10.1 (8-16); BASOPHILS % (AUTO) 0.1 % (0.0-2.0); CARBON DIOXIDE 28.4 mmol/L (21-32); CHLORIDE 116 mmol/L (98-107); CREATININE 1.1 mg/dL (0.6-1.3); EOSINOPHILS # (AUTO) 0.1 K/uL (0-0.4); EOSINOPHILS % (AUTO) 1.7 % (0.0-4.0); GLUCOSE 126 mg/dL (74-106); HEMATOCRIT 29.8 % (36-52); HEMOGLOBIN 10.1 g/dL (12.0-18.0); LYMPHOCYTES # (AUTO) 0.8 K/uL (2.0-11.5); LYMPHOCYTES % (AUTO) 12.1 % (20.5-51.1); MEAN CORPUSCULAR HEMOGLOBIN 33 pg (27-31); MEAN CORPUSCULAR HGB CONC 34 g/dL (33-37); MEAN CORPUSCULAR VOLUME 96.7 fL (80-94); MONOCYTES # (AUTO) 0.3 K/uL (0.8-1.0); MONOCYTES % (AUTO) 4.6 % (1.7-9.3); NEUTROPHILS # (AUTO) 5.4 K/uL (1.8-7.7); NEUTROPHILS % (AUTO) 81.5 % (42.2-75.2); PLATELET COUNT (AUTO) 108 K/uL (140-450); POTASSIUM 3.5 mmol/L (3.5-5.1); RED BLOOD CELL COUNT(AUTO) 3.08 MIL/uL (4.20-6.10); RED CELL DISTRIBUTION WIDTH 14.8 % (11.6-13.7); SODIUM SERUM 151 mmol/L (136-145); UREA NITROGEN, BLOOD 22 mg/dL (7-18); WHITE BLOOD COUNT (AUTO) 6.6 K/uL (4.8-10.8)
[2022-09-04] MEDS: HYDRAGUARD CREAM TP SCH ×2 (05:12→13:00)
[2022-09-04] MEDS: PIPERACILLIN/TAZOBACTAM 3.375 GM in DEXTROSE 5% 50 ML IV SCH ×3 (05:13→20:46)
--- NOTE | 2022-09-04 06:52 | NUR ---
RECEIVED PT ON BIPAP, SETTINGS 12/6 R 16 AND FIO2 TITRATED TO 65%. BIPAP IS PLUGGED INTO A RED OUTLET WITH ALARMS ON AND FUNCTIONING. PROTECTA GEL IS PLACED UNDER MASK TO PREVENT SKIN BREAKDOWN. WILL CONTINUE TO MONITOR.
--- NOTE | 2022-09-04 07:15 | NUR ---
Received report from maintenance technician 3rd shift nurse ERIC Cordero. Patient is unable to make needs or wants known, responds to physical touch or stimulation. Currently on BIPAP machine with IPAP 12, RR 16, O2 65%. Lung sounds are present with auscultation. Abdomen soft and no facial grimace noted when palpated, Harp catheter draining to gravity with no dependent loops. Patient skin intact except with some breakdown on the side of the face. 20G IV on left hand infusing D5% NS 0.45% at 100 ml/hr and Levophed on standby. Call light within reach, bed locked and in lowest position for patient safety.
--- NOTE | 2022-09-04 07:30 | NUR ---
Received report from ERIC Garcia for continuity of care. At this moment patient code status modified code.
--- NOTE | 2022-09-04 08:49 | NUR ---
Dr. Ludny medical coordinator pesticide use per student " I am with Elan" rounded at patients bedside. Informed about patients tachycardia per Dr. Lundy "I'll let Dr. Ansari know." MD resident aware of patients high sodium levels of 151 and chloride of 116. MD suggested LR but she stated "I will talk to Dr. Ansari about the situation and I'll put the order in." MD students Jadyn from [facility] present when Dr. Lundy stated she would speak with Dr. Ansari and present when made MD aware of patients tachycardia.
--- NOTE | 2022-09-04 08:50 | NUR ---
Dr. Lundy medical secretary put in the order to have patient start on D5% at 100 mls/hr.
--- NOTE | 2022-09-04 09:22 | NUR ---
PATIENT HAD TEMPERATURE OF 100.2. REACHED OUT TO MD WEBB ABOUT TEMPERATURE. WILL AWAIT RESPONSE. Addendum: 09/04/22 at 1905 by ANAND FELICIANO RN 100.7
--- NOTE | 2022-09-04 09:24 | NUR ---
Lita from Lab called stating patients lactic acid is 3. Will continue to follow plan of care.
--- NOTE | 2022-09-04 09:50 | NUR ---
Informed Dr. Ansari about patients lactic levels of 3 waiting for MD to reply.
[2022-09-04] MEDS: DEXTROSE 5% 1,000 ML IV SCH ×3 (09:53→20:43)
[2022-09-04] MEDS: PANTOPRAZOLE 40 MG INJ VIAL IVP SCH (09:53)
--- NOTE | 2022-09-04 10:19 | NUR ---
administered tylenol rc 650mg. Patient tolerated suppository. Using cooling measures at the moment with ice packs under both axillas. will continue to follow plan of care.
[2022-09-04] MEDS: LORazepam 2 MG/ML VIAL IVP PRN (10:22)
--- NOTE | 2022-09-04 10:25 | NUR ---
RT's Navneet and Coco rounded at patients bedside and assessed him. Fixed BIPAP machine. No further BIPAP machine alarm noted.
--- NOTE | 2022-09-04 10:34 | NUR ---
Patients daughter Katerina brought the legalized papers that state she is the DPOA.
--- NOTE | 2022-09-04 11:19 | NUR ---
Reassessed patient temperature. Temperature is now 100.0. Will continue with cooling measures.
--- NOTE | 2022-09-04 12:17 | NUR ---
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 MD Ansari aware. No new orders received.
--- NOTE | 2022-09-04 12:20 | NUR ---
Dr. Diaz rounded at patients bedside. No new orders received.
--- NOTE | 2022-09-04 12:28 | NUR ---
Dr. Ansari rounded at patients bedside spoke with daughter Katerina regarding patients plan. Per MD Ansari he explained to the daughter options that patient can start on TPN through the IV to keep have him on nutrition, VTE scan can also be done due to possible PE waiting on D-Dimer, or comfort measures. Per daughter stated that she would wait and consolidate decision with all her family members. MD Ansari stated to be notified once daughter decides on what she wants to do.
[2022-09-04] MEDS ORDERED: FOAM DRESSING TP SCH (13:00)
--- NOTE | 2022-09-04 15:45 | NUR ---
Family requested to hold morphine drip until change of shift. Family requested to have private room spoke to [facility] charge nurse ERIC Petty regarding the families request. ERIC Petty gave room 115.
--- NOTE | 2022-09-04 15:54 | NUR ---
Dr. Ansari was called and informed that daughter Katerina and family made decision to put patient on comfort measures. Per MD hold off on Morphine until all family members see the patient per family request. Notify MD once Morphine drip starts.
[2022-09-04] MEDS ORDERED: MORPHINE SULFATE 50 MG in NACL 0.9% 45 ML IV PRN (16:05)
[2022-09-04] MEDS ORDERED: MORPHINE SULFATE 500 MG in NACL 0.9% 500 ML IV PRN (16:25)
[2022-09-04] MEDS ORDERED: VANCOMYCIN PER PHARMACY MC PRN (16:40)
[2022-09-04] MEDS ORDERED: VANCOMYCIN 1,000 MG in DEXTROSE 5% 250 ML IV SCH (18:00)
--- NOTE | 2022-09-04 18:00 | NUR ---
Held vancomycin and D5% per patient being on comfort measures.
--- NOTE | 2022-09-04 19:27 | NUR ---
Endorsed report to residential sales nurse ERIC Asencio for patients continuity of care.
--- NOTE | 2022-09-04 19:28 | NUR ---
RECEIVED BEDSIDE REPORT FROM AM NURSE. PATIENT ON BIPAP SATING AT 94%. LETHARGIC. NO S/S OF RESPIRATORY DISTRESS. BREATHING REGULAR NON LABORED. IVF OF D5% AT 100 MLS/HR. POWERS CATHETER DRAINING TO GRAVITY TO A YELLOW COLORED URINE. ALL SAFETY MEASURES IN PLACE. WILL CONTINUE TO MONITOR.
--- NOTE | 2022-09-04 20:24 | NUR ---
PT TRANSPORTED FROM ICU TO TELE. OXYGENATION AND VENTILATION WAS PROVIDED VIA THE BIPAP. PT TOLERATED TRANSPORT WELL.
--- NOTE | 2022-09-04 20:39 | NUR ---
STARTED 2 MG /HR MORPHINE DRIP. Addendum: 09/04/22 at 2130 by Elif Alba RN RN PER COMFORT MEASURE PROTOCOL
--- NOTE | 2022-09-04 21:43 | NUR ---
FAMILY AT BEDSIDE ALL QUESTIONS ANSWERED. PATIENT MONITORED CLOSELY.
--- NOTE | 2022-09-04 21:56 | NUR ---
BIPAP REMOVED ORDERED. PATIENT ON ROOM AIR.
--- NOTE | 2022-09-04 21:57 | NUR ---
PT FAMILY WERE EDUCATED AT BEDSIDE. BiPAP MASK WAS REMOVED. NO RESPIRATORY DISTRESS AT THIS TIME. WILL CONTINUE TO MONITOR PT
--- NOTE | 2022-09-04 23:30 | NUR ---
PATIENT WITH LABORED BREATHING CLOSELY MONITORED. V/S: BP-83/37 , P-97, R-28, O2 SAT- T- 97.4, 50%. FAMILY AT BEDSIDE. MORPHINE TITRATED ORDERED FOR COMFORT MEASURES.
--- NOTE | 2022-09-05 00:40 | NUR ---
PATIENT V/S UNABLE TO OBTAIN. PRONOUNCED BY NURSE BUSINESS RISK ANALYST GEN. FAMILY MEMBERS AT BEDSIDE.
--- NOTE | 2022-09-05 00:55 | NUR ---
REPORTED TO [facility] SPOKE TO ABUNDIO WITH CASE # [id number].
--- NOTE | 2022-09-05 01:05 | NUR ---
CALLED TAFE TEACHER , SAND SLINGER ASKED PATIENT'S NAME AND AGE, WAITING FOR CALL BACK.
--- NOTE | 2022-09-05 03:00 | NUR ---
CALLED WEAPONS OFFICER AGAIN ENGRAVER SEALS STATED TO WAIT FOR DEPUTY TO CALL BACK.
--- NOTE | 2022-09-05 03:15 | NUR ---
RECEIVED A CALL FROM SECURITIES COUNSELOR TATI HAQUE NOT A SECURITIES COUNSELOR'S CASE. BODY RELEASED.
--- NOTE | 2022-09-05 04:05 | NUR ---
RN SUPERVISOR RESEARCH KENNEL COMFORT CALLED DAVON SINHAGokul AT 0350 TO COME FINANCE ADVISOR THE BODY BUT THEY NEED PERMISSION FROM THE FAMILY BEFORE THEY FINANCE ADVISOR THE BODY. DAUGHTER JUAN JOSÉ WAS CALLED AND LEFT A VOICE MESSAGE TO CALL THE HOSPITAL. NO CALL BACK YET.
--- NOTE | 2022-09-05 06:10 | NUR ---
PLACED A CALL TO YASMEEN ARENAS DAUGHTER TO CALL THE [facility] TO GIVE PERMISSION TO DOORKEEPER THE BODY AND CALL BACK, HOSPITAL NUMBER PROVIDED.
--- NOTE | 2022-09-05 07:00 | NUR ---
SPOKE TO REANNA FROM [facility], BODY WILL BE BEDSPREAD FOLDER BEFORE 10:00 AM. WILL ENDORSE TO THE INCOMING NURSE.
[2022-09-05] MEDS ORDERED: PANTOPRAZOLE 40 MG INJ VIAL IVP SCH (09:00)
== END 2022-09-05 00:40 | DRG 871 ==
LOC: MED 11:55 → MTU 13:22 → MIC 14:01 → MTU 09-04 20:15
PROVIDERS: ADMIT Family Medicine; ATTEND Family Medicine
PROC: 5A09457 Assistance with Respiratory Ventilation, 24-96 Consecutive Hours, Continuous Positive Airway Pressure (ICD-10-PCS; principal; 2022-09-02)
DX: A41.9 Sepsis, unspecified organism (principal); J69.0 Pneumonitis due to inhalation of food and vomit; J96.01 Acute respiratory failure with hypoxia; R65.21 Severe sepsis with septic shock; N17.0 Acute kidney failure with tubular necrosis; E87.0 Hyperosmolality and hypernatremia; G93.40 Encephalopathy, unspecified; Z66 Do not resuscitate; E03.9 Hypothyroidism, unspecified; E87.6 Hypokalemia; R13.10 Dysphagia, unspecified; G20 Parkinson's disease; F02.80 Dementia in other diseases classified elsewhere, unspecified severity, without behavioral disturbance, psychotic disturbance, mood disturbance, and anxiety; B35.1 Tinea unguium; L60.0 Ingrowing nail; Z20.822 Contact with and (suspected) exposure to COVID-19; Z90.49 Acquired absence of other specified parts of digestive tract; I46.9 Cardiac arrest, cause unspecified
CPT/HCPCS: 36415; 36600; 71045; 80048; 80053; 81001; 82150; 82803; 83036; 83605; 83690; 83735; 83880; 84100; 84436; 84439; 84443; 84479; 84484; 85025; 85379; 85610; 85730; 87040; 87081; 87086; 93005; 93925; 93970; 94640; 94660; 96365; 99291; C9113; J1644; J2060; J2270; J2543; J3370; J3490; J7030; J7060; Q0092